=== PATIENT | male | born 1955 | race African-American/Black ===

== ENCOUNTER 2016-07-27 14:24 | Inpatient (IN) | payer MEDICARE, MEDICAID ==
[~2016-07-27] VITALS: Ht 175.3 cm; Wt 59.0 kg
[~2016-07-27 14:24] MED LIST: ASPIRIN EC81 MG PO; DILAUDID4 MG PO; EPZICOM1 TAB PO; GLUCERNA GT; LANTUS5 UNITS SUBQ; LEVAQUIN500 MG ORAL; OXANDRIN10 MG PO; PYRIDOXINE HCL50 MG PO; SUSTIVA600 MG PO; VITAMIN C500 M1 PO; ZESTRIL10 MG PO
[2016-07-27] MEDS ORDERED: Ipratropium 0.02% Inh Soln 2.5ml UD HHN ONE (14:30)
[2016-07-27] MEDS ORDERED: Albuterol ud Inhalation HHN ONE (14:30)
[2016-07-27] MEDS ORDERED: Azithromycin 500 MG in NS 275 ML IV ONE (14:30)
--- NOTE | 2016-07-27 14:34 | Emergency Room Report ---
History of Present Illness General Source: Patient, EMS Present Illness HPI Patient is a 60-year-old male brought in by ambulance after increased difficulty breathing. Patient had prior history of HIV and had began having increased cough and difficulty breathing. patient had reported a cell count greater than 500 as well as viral load undetectable. The patient had reported fever last night. He reportedly had been sick for 3 weeks. The patient is a smoker and denied smoking cigarettes for the past 3 weeks. Had been given a breathing treatment at the clinic. The patient is followed by Dr. Rl Jacobs. Allergies: Coded Allergies: AMOXICILLIN (Verified Allergy, Mild, 10/11/09) PENICILLINS (Verified Allergy, Mild, 10/11/09) Patient History Past Medical History: see triage record, asthma, COPD, HIV Reviewed Nursing Documentation: PMH: Agreed, PSxH: Agreed Nursing Documentation-PMH Hx Cardiac Problems: Yes - HIV Hx Hypertension: Yes Hx Asthma: Yes Hx COPD: Yes Hx Diabetes: Yes Hx Cancer: Yes Hx Gastrointestinal Problems: No Hx Neurological Problems: No Hx Paralysis: No Hx Peripheral Neuropathy: Yes - LEGS Hx Dizziness: Yes - INFREQUENT Hx Headaches: Yes - ONLY WHEN ILL OR WHEN DIABETES UNCONTROLLED Hx Weakness: Yes - MAJORITY OF THE TIME Hx Fatigue: Yes - MAJORITY OF THE TIME Review of Systems All Other Systems: negative except mentioned in HPI Physical Exam Sp02 EP Interpretation: reviewed, normal General Appearance: normal inspection, well appearing, no apparent distress, alert, GCS 15 Head: atraumatic ENT: normal ENT inspection, hearing grossly normal, normal voice Neck: normal inspection, full range of motion, supple, no bony tend Respiratory: normal inspection, lungs clear, no retraction, wheezing Cardiovascular #1: regular rate, rhythm, no edema Gastrointestinal: normal inspection, normal bowel sounds, non tender, soft, no guarding, no hernia Genitourinary: no CVA tenderness Musculoskeletal: normal inspection, back normal, normal range of motion Neurologic: normal inspection, alert, oriented x3, responsive, airport electrician III-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 Because of complexity of patient' s case laboratory testing and imaging studies were ordered. EKG interpreted by me showed sinus tachycardia with a rate of 107 there were no acute ST or T wave changes noted. A rhythm strip interpreted by me showed sinus tachycardia with a rate in the 100s without PVCs or ectopy.The patient was noted to have a laboratory tests were normal white blood count as as elevated creatinine. The patient started on IV fluids. He was given breathing treatments. Dr. Ramirez was contacted for inpatient management. Labs Test 07/27/16 15:15 White Blood Count 7.7 K/UL (4.8-10.8) Red Blood Count 4.20 M/UL (4.70-6.10) Hemoglobin 13.9 G/DL (14.2-18.0) Hematocrit 42.8 % (42.0-52.0) Mean Corpuscular Volume 102 FL (80-99) Mean Corpuscular Hemoglobin 33.1 PG (27.0-31.0) Mean Corpuscular Hemoglobin Concent 32.5 G/DL (32.0-36.0) Red Cell Distribution Width 14.5 % (11.6-14.8) Platelet Count 220 K/UL (150-450) Mean Platelet Volume 8.1 FL (6.5-10.1) Neutrophils (%) (Auto) 64.0 % (45.0-75.0) Lymphocytes (%) (Auto) 26.5 % (20.0-45.0) Monocytes (%) (Auto) 8.8 % (1.0-10.0) Eosinophils (%) (Auto) 0.2 % (0.0-3.0) Basophils (%) (Auto) 0.5 % (0.0-2.0) Sodium Level 136 mEQ/L (135-145) Potassium Level 5.1 mEQ/L (3.4-4.9) Chloride Level 97 mEQ/L (98-107) Carbon Dioxide Level 24 mEQ/L (20-30) Anion Gap 15 (5-15) Blood Urea Nitrogen 28 mg/dL (7-23) Creatinine 2.0 mg/dL (0.7-1.2) Estimat Glomerular Filtration Rate 41.7 mL/min (>60) Glucose Level 86 mg/dL (74-106) Lactic Acid Level 1.20 mmol/L (0.66-2.22) Calcium Level 8.7 mg/dL (8.6-10.2) Total Bilirubin 0.5 mg/dL (0.0-1.2) Aspartate Amino Transf (AST/SGOT) 54 U/L (5-40) Alanine Aminotransferase (ALT/SGPT) 34 U/L (3-41) Alkaline Phosphatase 48 U/L (40-129) Total Protein 7.9 g/dL (6.6-8.7) Albumin 3.7 g/dL (3.5-5.2) Globulin 4.2 g/dL Albumin/Globulin Ratio 0.8 (1.0-2.7) EKG Diagnostic Results Rate: tachycardiac Rhythm: NSR - 107 ST Segments: no acute changes Rhythm Strip Diag. Results EP Interpretation: yes Rhythm: NSR, no PVC's, no ectopy Chest X-Ray Diagnostic Results EP Interpretation: Yes Findings: no consolidation, no effusion, no pneumothorax, no acute cardiopulmonary disease Number of Views: 1 Status: unchanged Disposition: ADMITTED INPATIENT Condition: Serious Jim Durán Jul 27, 2016 14:34
[2016-07-27 15:24] VITALS: BP 120/82
[2016-07-27] MEDS ORDERED: Azithromycin Inj IV ONE (15:24)
[2016-07-27 16:06] LABS: BASOPHILS % (AUTO) 0.5 % (0.0-2.0); EOSINOPHILS % (AUTO) 0.2 % (0.0-3.0); LYMPHOCYTES % (AUTO) 26.5 % (20.0-45.0); MEAN CORPUSCULAR HEMOGLOBIN 33.1 PG (27.0-31.0); MEAN CORPUSCULAR HGB CONC 32.5 G/DL (32.0-36.0); MEAN CORPUSCULAR VOLUME 102 FL (80-99); MEAN PLATELET VOLUME 8.1 FL (6.5-10.1); MONOCYTES % (AUTO) 8.8 % (1.0-10.0); PLATELET COUNT 220 K/UL (150-450); RED CELL DISTRIBUTION WIDTH 14.5 % (11.6-14.8); WHITE BLOOD COUNT 7.7 K/UL (4.8-10.8)
[2016-07-27 16:23] LABS: ALBUMIN/GLOBULIN RATIO 0.8 (1.0-2.7); CALCIUM 8.7 mg/dL (8.6-10.2); GLOMERULAR FILTRATION RATE 41.7 mL/min (>60); POTASSIUM 5.1 mEQ/L (3.4-4.9); TOTAL PROTEIN 7.9 g/dL (6.6-8.7)
[2016-07-27] MEDS ORDERED: OXANDROLONE10 MG PO (16:24)
[2016-07-27] MEDS ORDERED: SYMBICORT 16010.2 G1 IH (16:24)
[2016-07-27] MEDS ORDERED: CLOTRIMAZOLE-BE15 GM TP (16:26)
[2016-07-27] MEDS ORDERED: ADVAIR HFA 45-212 GM INH (16:27)
[2016-07-27 16:28] LABS: TROPONIN I < 0.30 ng/mL (<=0.30)
[2016-07-27] MEDS ORDERED: LYRICA50 MG ORAL (16:28)
[2016-07-27] MEDS ORDERED: ISONIAZID300 MG PO (16:28)
[2016-07-27] MEDS ORDERED: ASPIR 8181 MG ORAL (16:28)
[2016-07-27] MEDS ORDERED: Morphine Sulfate 4mg/ml Inj IVP ONE (17:15)
[2016-07-27 17:49] VITALS: BP 116/79
--- NOTE | 2016-07-27 18:26 | Infectious Diseases Prog Note ---
Assessment/Plan Assessment/Plan Full consult to follow: A) 1) possible cap pna, fevers, sob, congestion 2) uri/bronchitis/copd 3) hiv, cd4 > 500 4) ? viral syndrome, influenza screen negative 5) zara, elevated cr, ? cri, htn, dm, neuropathy, copd, asthma, weakness, fatigue, ca - ? type 6) sh-past smoker, fh-nc, mar noted, notes and records reviewed 7) allergies - pcn, amoxicillin 8) d/w RN P) 1) levofloxacin, zyvox, aztreonam 2) check sc, labs and chest x-ray, check legionella, check mycoplasma 3) pulmonary treatment 4) orders entered and noted 5) continue treatment per primary and consultants 6) thank you Subjective Allergies: Coded Allergies: AMOXICILLIN (Verified Allergy, Mild, 10/11/09) PENICILLINS (Verified Allergy, Mild, 10/11/09) Objective Vital Signs Last 24 Hour Vital Signs Date Time Temp Pulse Resp B/P Pulse Ox O2 Delivery O2 Flow Rate FiO2 07/27/16 17:56 99.5 07/27/16 17:52 99.5 07/27/16 17:49 99.5 117 18 116/79 97 Room Air 07/27/16 15:25 121 20 Room Air 07/27/16 15:24 100.4 20 120/82 100 Room Air 07/27/16 14:50 121 20 100 Room Air 07/27/16 14:40 110 20 Room Air 07/27/16 14:31 100.4 114 21 120/82 96 Room Air Height (Feet): 5 Height (Inches): 7.00 Weight (Pounds): 133 Microbiology Date/Time Source Procedure Growth Status 07/27/16 15:22 Nasal Nares Influenza Types A,B Antigen (ALON) - Final Complete Laboratory Tests Test 07/27/16 15:15 White Blood Count 7.7 K/UL (4.8-10.8) Red Blood Count 4.20 M/UL (4.70-6.10) L Hemoglobin 13.9 G/DL (14.2-18.0) L Hematocrit 42.8 % (42.0-52.0) Mean Corpuscular Volume 102 FL (80-99) H Mean Corpuscular Hemoglobin 33.1 PG (27.0-31.0) H Mean Corpuscular Hemoglobin Concent 32.5 G/DL (32.0-36.0) Red Cell Distribution Width 14.5 % (11.6-14.8) Platelet Count 220 K/UL (150-450) Mean Platelet Volume 8.1 FL (6.5-10.1) Neutrophils (%) (Auto) 64.0 % (45.0-75.0) Lymphocytes (%) (Auto) 26.5 % (20.0-45.0) Monocytes (%) (Auto) 8.8 % (1.0-10.0) Eosinophils (%) (Auto) 0.2 % (0.0-3.0) Basophils (%) (Auto) 0.5 % (0.0-2.0) Sodium Level 136 mEQ/L (135-145) Potassium Level 5.1 mEQ/L (3.4-4.9) H Chloride Level 97 mEQ/L (98-107) L Carbon Dioxide Level 24 mEQ/L (20-30) Anion Gap 15 (5-15) Blood Urea Nitrogen 28 mg/dL (7-23) H Creatinine 2.0 mg/dL (0.7-1.2) H Estimat Glomerular Filtration Rate 41.7 mL/min (>60) Glucose Level 86 mg/dL (74-106) Lactic Acid Level 1.20 mmol/L (0.66-2.22) Calcium Level 8.7 mg/dL (8.6-10.2) Total Bilirubin 0.5 mg/dL (0.0-1.2) Aspartate Amino Transf (AST/SGOT) 54 U/L (5-40) H Alanine Aminotransferase (ALT/SGPT) 34 U/L (3-41) Alkaline Phosphatase 48 U/L (40-129) Troponin I < 0.30 ng/mL (<=0.30) Pro-B-Type Natriuretic Peptide 15 pg/mL (0-125) Total Protein 7.9 g/dL (6.6-8.7) Albumin 3.7 g/dL (3.5-5.2) Globulin 4.2 g/dL Albumin/Globulin Ratio 0.8 (1.0-2.7) L Current Medications Medications (Trade) Dose Ordered Sig/Jeremias Route PRN Reason Start Time Stop Time Status Last Admin Dose Admin Sodium Chloride (NS) 500 ml @ 999 mls/hr ONCE ONCE IVPB 07/27/16 18:00 07/27/16 18:30 07/27/16 18:02 ANDRZEJ SMITH Jul 27, 2016 18:26
[2016-07-27 18:35] VITALS: BP 119/79
--- NOTE | 2016-07-27 19:07 | General Progress Note ---
Progress Note Progress Note pt seen and examined nurse in the bed side full note will be dictated LUPE ROSS Jul 27, 2016 19:07
[2016-07-27] MEDS ORDERED: Ipratropium 0.02% Inh Soln 2.5ml UD HHN PRN (19:45)
[2016-07-27] MEDS ORDERED: Promethazine/Codeine 5ml UD ORAL PRN (19:45)
[2016-07-27] MEDS ORDERED: Zolpidem 5mg tab ORAL PRN (19:45)
[2016-07-27 20:41] LABS: APPEARANCE,URINE CLEAR; KETONES,URINE NEGATIVE (NEGATIVE); LEUKOCYTE ESTERASE ,URINE 1+ (NEGATIVE); NITRITE,URINE NEGATIVE (NEGATIVE); PH,URINE 6 (4.5-8.0); PROTEIN,URINE 2+ (NEGATIVE); UROBILINOGEN,URINE 8 MG/DL (0.0-1.0)
[2016-07-27] MEDS: Efavirenz 200mg cap ORAL SCH (21:00)
[2016-07-27 21:01] LABS: AMORPHOUS SEDIMENT,UR FEW /LPF; BACTERIA,URINE FEW /HPF
[2016-07-27] MEDS: NovoLOG Insulin Flexpen SUBQ SCH (21:19)
[2016-07-27] MEDS: Levemir Flexpen SUBQ SCH (21:19)
[2016-07-27] MEDS: Aztreonam Inj 1 GM in D5W 55 ML IVPB SCH (21:26)
[2016-07-27] MEDS: Albuterol ud Inhalation HHN SCH (23:07)
[2016-07-27] MEDS ORDERED: D5W IV SCH (23:45)
[2016-07-27] MEDS ORDERED: AZITHROMYCIN IV SCH (23:45)
[2016-07-28] VITALS: BP 122/78
[2016-07-28 04:00] VITALS: BP 118/82
--- NOTE | 2016-07-28 04:47 | Consultation ---
DATE OF CONSULTATION: 07/21/2016 REASON FOR CONSULTATION: Possible pneumonia and respiratory infection. CHIEF COMPLAINT: The patient's chief complaint coming in with COPD exacerbation. HISTORY OF PRESENT ILLNESS: This is a very pleasant 60-year-old male with history of HIV. T-cell count of over 500. Over the last several weeks to month, he states he has had cough, congestion, shortness of breath and green sputum production. The patient went to his primary doctor's office Dr. Deo Jacobs who has discussed the case with. The patient was diagnosed with possible pneumonia. The patient presents to [facility] with shortness of breath, cough, and congestion. Infectious Disease consultation was requested for antibiotic management. The patient is under the care of Dr. Ramirez. The patient was placed on antibiotics and cultured. The patient was seen by emergency room physician by RN. MAR was noted. Orders were noted. Notes and records were reviewed. REVIEW OF SYSTEMS: Constitutional: The patient has fever and chills. He has generalized weakness and fatigue. Head And Neck: No thrush or dysphagia. Pulmonary: He has congestion, shortness of breath, and green sputum production. Cardiac: No chest pain or palpitations. Gastrointestinal: No nausea, vomiting, or diarrhea. Genitourinary: No dysuria or frequency. Skin: No rash or itching. Extremities: No extremity pain Neurologic: No seizures. PAST MEDICAL HISTORY: Includes the history of following: The patient has a past medical history of HIV, T-cell count of above 500. He is on antiretroviral therapy. The patient also has elevated creatinine, kidney disease, questionable chronic kidney injury. The patient has anemia, diabetes, hypertension, neuropathy, COPD, asthma, weakness, fatigue, and question of malignancy. He has elevated potassium and very mild anemia, neuropathy, hypertension, and diabetes. Please see past medical history in medical order. ALLERGIES: Include amoxicillin and penicillin, he gets hives. FAMILY HISTORY: Noncontributory. Negative for exposure to tuberculosis or cancer. SOCIAL HISTORY: Past smoker. No alcohol or drug abuse. MEDICATIONS: Upon reviewing the MAR, in the ER he was given azithromycin and albuterol treatments. He was given Atrovent, Proventil, Advil, Tylenol, and morphine sulfate. Outside medications prior to admission include ascorbic acid, aspirin, Symbicort, clotrimazole, Sustiva, Epzicom, Advair, Dilaudid, . Looks like he was on Levaquin and Zestril. He was on oxandrolone. He was on pregabalin. Please see medications and past medical history in medical order. PHYSICAL EXAMINATION: GENERAL: Alert and responsive, no acute distress. He is oriented x3. He looks he has mild congestion. VITAL SIGNS: The patient's temperature is 100.4, pulse rate 117, respiratory rate 18, saturation 97%, and blood pressure 116/79. HEAD AND NECK: Oral exam, no thrush. Eye exam, no icterus. Neck is supple. No JVD. No sinus tenderness. Normocephalic. No facial droop. No neck stiffness. LUNGS: Bilateral rhonchi and rales. HEART: Regular. No gallop or murmur. No friction rub. Tachycardic. ABDOMEN: Soft. Positive bowel sounds. SKIN: No rash or dermatitis. MUSCULOSKELETAL: No effusions or contractures. EXTREMITIES: Legs are without cellulitis. PERIPHERAL VASCULAR: No cyanosis or gangrene. RECTAL: Deferred. GENITOURINARY: No Darby. LINES: Line sites is without phlebitis. NEUROLOGIC: Generalized weakness and responsive. LABORATORY DATA: White count 7.7 and hemoglobin 13.9. The patient's creatinine is 2.0 and potassium 5.1. Chest x-ray and cultures are pending. ASSESSMENT AND PLAN: 1. The patient has possibly community-acquired pneumonia versus pneumonia. He could have a viral pneumonia or viral syndrome. His influenza screen is negative. The patient certainly could have MRSA gram-negative which is partly community-acquired pneumonia. The patient will be started on Zyvox and aztreonam. I was considering Levaquin however because of he was placed on azithromycin in addition to aztreonam and Zyvox. We will check sputum culture, check Legionella, Mycoplasma, and sputum cultures. Follow up labs and chest x-ray. Unlikely to be PCP or cryptococcus since his T-cell count is over 500. At this time, we will continue antibiotics aztreonam, Zyvox, and azithromycin. Pending workup and cultures and serology and . The patient may need steroids. 2. Upper respiratory infection, bronchitis, and chronic obstructive pulmonary disease. Continue current pulmonary treatment. 3. HIV. T-cell count over 500. Continue antiretroviral therapy. 4. Possible viral syndrome. 5. Acute kidney injury; however, creatinine is 6. 6. Possible anemia. 7. Diabetes. 8. Hypertension. 9. Neuropathy. 10. Chronic obstructive pulmonary disease. 11. Asthma. 12. Weakness. 13. Fatigue. 14. history of cancer. 15. Past smoking. 16. Allergic to amoxicillin and penicillin, which he gets hives. 17. Discussed with RN. 18. Notes and records were reviewed. 19. 20. MAR was noted. 21. Atiya Lind M.D. DR: FAISAL JOB#: [id number] CC:
[2016-07-28] MEDS: Albuterol ud Inhalation HHN SCH ×6 (04:56→23:13)
[2016-07-28] MEDS: Aztreonam Inj 1 GM in D5W 55 ML IVPB SCH ×3 (05:57→22:02)
[2016-07-28] MEDS: NovoLOG Insulin Flexpen SUBQ SCH ×4 (06:01→21:00)
[2016-07-28 07:10] LABS: BASOPHILS % (AUTO) 0.4 % (0.0-2.0); EOSINOPHILS % (AUTO) 0.7 % (0.0-3.0); MEAN CORPUSCULAR HEMOGLOBIN 33.8 PG (27.0-31.0); MEAN CORPUSCULAR HGB CONC 33.2 G/DL (32.0-36.0); MEAN CORPUSCULAR VOLUME 102 FL (80-99); MEAN PLATELET VOLUME 8.4 FL (6.5-10.1); MONOCYTES % (AUTO) 9.2 % (1.0-10.0); NEUTROPHILS % (AUTO) 55.8 % (45.0-75.0); PLATELET COUNT 176 K/UL (150-450); RED CELL DISTRIBUTION WIDTH 14.6 % (11.6-14.8); WHITE BLOOD COUNT 6.7 K/UL (4.8-10.8)
[2016-07-28 07:38] LABS: CALCIUM 8.1 mg/dL (8.6-10.2); CREATININE 1.5 mg/dL (0.7-1.2); GLOMERULAR FILTRATION RATE 58.1 mL/min (>60)
[2016-07-28 08:00] VITALS: BP 113/75
[2016-07-28] MEDS: Aspirin EC 81mg tab ORAL SCH (08:51)
[2016-07-28] MEDS: Ascorbic Acid 500mg tab ORAL SCH ×2 (08:51→17:52)
[2016-07-28] MEDS: Lisinopril 20mg tab ORAL SCH (08:51)
[2016-07-28] MEDS: Lyrica 50mg cap ORAL SCH (08:52)
[2016-07-28] MEDS ORDERED: Lotrisone Cream 15gm TOPIC SCH (09:00)
[2016-07-28] MEDS: OXANDROLONE ORAL SCH (10:01)
--- NOTE | 2016-07-28 11:17 | Diagnostic Imaging Report ---
Indication: Dyspnea Comparison: 12 x 14 A single view chest radiograph was obtained. Findings: There is a severe kyphoscoliosis present. The lungs are clear. Heart is probably normal in size. Impression: No acute disease
[2016-07-28] MEDS: Epzicom tab ORAL SCH (13:57)
[2016-07-28 16:00] VITALS: BP 112/73
--- NOTE | 2016-07-28 16:44 | Infectious Diseases Prog Note ---
Assessment/Plan Assessment/Plan A) 1) possible cap pna, fevers, sob, congestion - fevers improved, w/u pending 2) uri/bronchitis/copd 3) hiv, cd4 > 500 4) ? viral syndrome, influenza screen negative 5) zara, elevated cr, ? cri, htn, dm, neuropathy, copd, asthma, weakness, fatigue, ca - ? type 6) sh-past smoker, fh-nc, mar noted, notes and records reviewed 7) allergies - pcn, amoxicillin 8) d/w RN P) 1) azithromycin, zyvox, aztreonam for now 2) check sc, labs and chest x-ray, check legionella, check mycoplasma 3) pulmonary treatment - breathing treatments 4) orders entered and noted 5) continue treatment per primary and consultants 6) d/w pt, answered questions Subjective Constitutional: Denies: fever HEENT: Reports: congestion Respiratory: Reports: shortness of breath Cardiovascular: Denies: chest pain Gastrointestinal/Abdominal: Denies: diarrhea, nausea, vomiting Genitourinary: Reports: other - no davenport, Denies: dysuria, frequency, hematuria Neurologic: Denies: headache Psychiatric: Denies: depression Skin: Denies: rash Musculoskeletal: Denies: pain Allergies: Coded Allergies: MUSHROOM (Verified Allergy, Severe, Hives, 07/27/16) AMOXICILLIN (Verified Allergy, Mild, 10/11/09) PENICILLINS (Verified Allergy, Mild, 10/11/09) Objective Vital Signs Last 24 Hour Vital Signs Date Time Temp Pulse Resp B/P Pulse Ox O2 Delivery O2 Flow Rate FiO2 07/28/16 16:00 98.1 99 20 112/73 98 Room Air 07/28/16 15:25 104 18 97 Room Air 2.0 07/28/16 15:11 102 18 95 Room Air 07/28/16 12:23 98.2 87 20 95 Room Air 07/28/16 10:59 95 14 100 Room Air 07/28/16 10:52 104 14 95 Room Air 07/28/16 10:39 97.3 07/28/16 08:51 113/75 07/28/16 08:00 97.3 98 19 113/75 96 Room Air 07/28/16 07:31 96 14 100 Room Air 07/28/16 07:20 96 14 100 Room Air 07/28/16 05:05 67 14 100 Room Air 07/28/16 04:57 96 18 97 Room Air 07/28/16 04:00 97.3 98 20 118/82 97 Nasal Cannula 2.0 07/28/16 00:00 98.2 92 20 122/78 96 Nasal Cannula 2.0 07/27/16 23:03 94 18 100 Room Air 07/27/16 22:48 90 18 95 Room Air 07/27/16 18:35 98.8 107 23 119/79 96 Room Air 07/27/16 18:11 117 18 116/79 97 Room Air 07/27/16 17:56 99.5 07/27/16 17:52 99.5 07/27/16 17:49 99.5 117 18 116/79 97 Room Air Height (Feet): 5 Height (Inches): 9.00 Weight (Pounds): 130 General Appearance: no acute distress HEENT: normocephalic, atraumatic, anicteric, mucous membranes moist, PERRL, EOMI, pharynx normal, supple, no JVD Respiratory/Chest: no respiratory distress, no accessory muscle use, crackles/ rales, rhonchi - bilaterally, other - clearer bilateral Cardiovascular: normal rate, regular rhythm, no gallop/murmur, no JVD Abdomen: normal bowel sounds, soft, non tender, no organomegaly, non distended Genitourinary: other - no davenport Extremities: no cyanosis Skin: no rash Neurologic/Psychiatric: open soaper tender II-XII grossly normal, alert, oriented x 3, responsive Lymphatic: no neck adenopathy Musculoskeletal: no effusion Objective chest x-ray - 07/27 - nad (reviewed) Microbiology Date/Time Source Procedure Growth Status 07/27/16 15:22 Nasal Nares Influenza Types A,B Antigen (ALON) - Final Complete influenza - negative culture - pending Laboratory Tests Test 07/27/16 19:40 07/27/16 19:55 07/28/16 06:05 Urine Color Brown Urine Appearance Clear Urine pH 6 (4.5-8.0) Urine Specific [place] 1.015 (1.005-1.035) Urine Protein 2+ (NEGATIVE) H Urine Glucose (UA) Negative (NEGATIVE) Urine Ketones Negative (NEGATIVE) Urine Occult Blood 2+ (NEGATIVE) H Urine Nitrite Negative (NEGATIVE) Urine Bilirubin Negative (NEGATIVE) Urine Urobilinogen 8 MG/DL (0.0-1.0) H Urine Leukocyte Esterase 1+ (NEGATIVE) H Urine RBC 5-10 /HPF (0 - 0) H Urine WBC 2-4 /HPF (0 - 0) Urine Squamous Epithelial Cells None /LPF (NONE/OCC) Urine Amorphous Sediment Few /LPF (NONE) H Urine Bacteria Few /HPF (NONE) Urine Opiates Screen Positive (NEGATIVE) H Urine Barbiturates Screen Negative (NEGATIVE) Phencyclidine (PCP) Screen Negative (NEGATIVE) Urine Amphetamines Screen Negative (NEGATIVE) Urine Benzodiazepines Screen Negative (NEGATIVE) Urine Cocaine Screen Positive (NEGATIVE) H Urine Marijuana (THC) Screen Negative (NEGATIVE) Urine Legionella Antigen Pending Mycoplasma pneumoniae IgG Antibody Pending Mycoplasma pneumoniae IgM Ab Titer Pending White Blood Count 6.7 K/UL (4.8-10.8) Red Blood Count 3.40 M/UL (4.70-6.10) L Hemoglobin 11.5 G/DL (14.2-18.0) L Hematocrit 34.5 % (42.0-52.0) L Mean Corpuscular Volume 102 FL (80-99) H Mean Corpuscular Hemoglobin 33.8 PG (27.0-31.0) H Mean Corpuscular Hemoglobin Concent 33.2 G/DL (32.0-36.0) Red Cell Distribution Width 14.6 % (11.6-14.8) Platelet Count 176 K/UL (150-450) Mean Platelet Volume 8.4 FL (6.5-10.1) Neutrophils (%) (Auto) 55.8 % (45.0-75.0) Lymphocytes (%) (Auto) 34.0 % (20.0-45.0) Monocytes (%) (Auto) 9.2 % (1.0-10.0) Eosinophils (%) (Auto) 0.7 % (0.0-3.0) Basophils (%) (Auto) 0.4 % (0.0-2.0) Sodium Level 140 mEQ/L (135-145) Potassium Level 4.0 mEQ/L (3.4-4.9) Chloride Level 102 mEQ/L (98-107) Carbon Dioxide Level 24 mEQ/L (20-30) Anion Gap 14 (5-15) Blood Urea Nitrogen 25 mg/dL (7-23) H Creatinine 1.5 mg/dL (0.7-1.2) H Estimat Glomerular Filtration Rate 58.1 mL/min (>60) Glucose Level 87 mg/dL (74-106) Hemoglobin A1c 6.3 % (< 6.0) H Calcium Level 8.1 mg/dL (8.6-10.2) L Current Medications Medications (Trade) Dose Ordered Sig/Jeremias Route PRN Reason Start Time Stop Time Status Last Admin Dose Admin Abacavir/ Lamivudine (Epzicom) 1 tab DAILY ORAL 07/28/16 13:00 08/27/16 12:59 07/28/16 13:57 Acetaminophen (Tylenol) 650 mg Q6H PRN ORAL Mild Pain/Temp > 100.5 07/27/16 19:45 08/26/16 19:44 Albuterol Sulfate (Proventil) 2.5 mg Q4HRT HHN 07/27/16 23:00 08/01/16 22:59 07/28/16 15:09 Ascorbic Acid (Vitamin C) 500 mg BID ORAL 07/28/16 09:00 08/27/16 08:59 07/28/16 08:51 Aspirin (Ecotrin) 81 mg DAILY ORAL 07/28/16 09:00 08/27/16 08:59 07/28/16 08:51 Azithromycin/ Dextrose (Zithromax/D5W) 110 ml @ 110 mls/hr Q24HRS IV 07/29/16 00:00 08/01/16 00:00 Aztreonam/Dextrose (Azactam/D5W) 55 ml @ 110 mls/hr Q8HR IVPB 07/27/16 22:00 08/03/16 21:59 07/28/16 13:34 Budesonide/ Formoterol Fumarate (Symbicort 160/ 4.5) 1 puff Q6H PRN INH WHEEZING 07/27/16 21:00 08/26/16 20:59 Dextrose (Dextrose 50%) STAT PRN IV Hypoglycemia 07/27/16 19:45 08/26/16 19:44 Efavirenz (Sustiva) 600 mg BEDTIME ORAL 07/27/16 21:00 08/26/16 20:59 Hydromorphone HCl (Dilaudid) 2 mg Q4H PRN IVP Severe Pain (Pain Scale 7-10) 07/27/16 19:45 08/03/16 19:44 07/28/16 10:09 Insulin Aspart (NovoLOG) BEFORE MEALS AND HS SUBQ 07/27/16 21:00 08/26/16 20:59 07/28/16 12:28 Insulin Detemir 24 units 24 units QHS SUBQ 07/27/16 21:00 08/26/16 20:59 07/27/16 21:19 Ipratropium [place] (Atrovent) 500 mcg Q4H PRN HHN Shortness of Breath 07/27/16 19:45 08/01/16 19:44 Linezolid 300 ml @ 300 mls/hr EVERY 12 HOURS IVPB 07/27/16 21:00 08/03/16 20:59 07/28/16 10:07 Lisinopril (Prinivil) 10 mg DAILY ORAL 07/28/16 09:00 08/27/16 08:59 07/28/16 08:51 Ondansetron HCl (Zofran) 4 mg Q4H PRN IVP Nausea & Vomiting 07/27/16 19:45 08/26/16 19:44 07/28/16 15:20 Oxandrolone (Oxandrin) 10 mg DAILY ORAL 07/28/16 09:00 08/27/16 08:59 07/28/16 10:01 Pregabalin (Lyrica) 50 mg DAILY ORAL 07/28/16 09:00 08/27/16 08:59 07/28/16 08:52 Promethazine HCl/ Codeine (Phenergan with Codeine) 5 ml Q4H PRN ORAL For Cough 07/27/16 19:45 08/26/16 19:44 07/28/16 15:45 Zolpidem Tartrate (Ambien) 5 mg HSPRN PRN ORAL Insomnia 07/27/16 19:45 08/26/16 19:44 ANDRZEJ SMITH Jul 28, 2016 16:44
--- NOTE | 2016-07-28 18:44 | Nephrology Progress Note ---
Assessment/Plan Problem List: (1) Acute kidney injury Assessment: due to unstable hemodynamic vs ckd due diabetic nephropathy vs HIVAN vs nephrosclerosis need to check us of kidney urine study (2) COPD exacerbation Assessment: continue breathing treatment iv antibiotic (3) Diabetes mellitus complicating , childbirth, or the puerperium Assessment: well controlled (4) Febrile illness, acute Assessment: continue iv antibiotic fallow up with culture fallow up with ID rec Subjective Constitutional: Reports: malaise, weakness HEENT: Reports: no symptoms Genitourinary: Reports: no symptoms Neurologic/Psychiatric: Reports: no symptoms Subjective alert and awake still c/o cough and sputum Objective Objective Last 24 Hour Vital Signs Date Time Temp Pulse Resp B/P Pulse Ox O2 Delivery O2 Flow Rate FiO2 07/28/16 17:13 98.1 07/28/16 16:00 98.1 99 20 112/73 98 Room Air 07/28/16 15:25 104 18 97 Room Air 2.0 07/28/16 15:11 102 18 95 Room Air 07/28/16 12:23 98.2 87 20 95 Room Air 07/28/16 10:59 95 14 100 Room Air 07/28/16 10:52 104 14 95 Room Air 07/28/16 08:51 113/75 07/28/16 08:00 97.3 98 19 113/75 96 Room Air 07/28/16 07:31 96 14 100 Room Air 07/28/16 07:20 96 14 100 Room Air 07/28/16 05:05 67 14 100 Room Air 07/28/16 04:57 96 18 97 Room Air 07/28/16 04:00 97.3 98 20 118/82 97 Nasal Cannula 2.0 07/28/16 00:00 98.2 92 20 122/78 96 Nasal Cannula 2.0 07/27/16 23:03 94 18 100 Room Air 07/27/16 22:48 90 18 95 Room Air Intake and Output 07/27/16 07/28/16 19:00 07:00 Intake Total 1375 ml 770 ml Output Total 300 ml Balance 1375 ml 470 ml Intake Oral 100 ml 250 ml IV Total 1275 ml 520 ml Output Urine Total 300 ml # Voids 1 Laboratory Tests 07/27/16 19:40: Urine Color Brown, Urine Appearance Clear, Urine pH 6, Urine Specific [place] 1.015, Urine Protein 2+H, Urine Glucose (UA) Negative, Urine Ketones Negative, Urine Occult Blood 2+H, Urine Nitrite Negative, Urine Bilirubin Negative, Urine Urobilinogen 8H, Urine Leukocyte Esterase 1+H, Urine RBC 5-10H, Urine WBC 2-4, Urine Squamous Epithelial Cells None, Urine Amorphous Sediment FewH, Urine Bacteria Few, Urine Opiates Screen PositiveH, Urine Barbiturates Screen Negative , Phencyclidine (PCP) Screen Negative, Urine Amphetamines Screen Negative, Urine Benzodiazepines Screen Negative, Urine Cocaine Screen PositiveH, Urine Marijuana (THC) Screen Negative 07/27/16 19:55: Urine Legionella Antigen [Pending], Mycoplasma pneumoniae IgG Antibody [Pending] , Mycoplasma pneumoniae IgM Ab Titer [Pending] 07/28/16 06:05: White Blood Count 6.7, Red Blood Count 3.40L, Hemoglobin 11.5L, Hematocrit 34.5L , Mean Corpuscular Volume 102H, Mean Corpuscular Hemoglobin 33.8H, Mean Corpuscular Hemoglobin Concent 33.2, Red Cell Distribution Width 14.6, Platelet Count 176, Mean Platelet Volume 8.4, Neutrophils (%) (Auto) 55.8, Lymphocytes (% ) (Auto) 34.0, Monocytes (%) (Auto) 9.2, Eosinophils (%) (Auto) 0.7, Basophils ( %) (Auto) 0.4, Sodium Level 140, Potassium Level 4.0, Chloride Level 102, Carbon Dioxide Level 24, Anion Gap 14, Blood Urea Nitrogen 25H, Creatinine 1.5H , Estimat Glomerular Filtration Rate 58.1, Glucose Level 87, Hemoglobin A1c 6.3H , Calcium Level 8.1L Height (Feet): 5 Height (Inches): 9.00 Weight (Pounds): 130 Objective HEAD AND NECK: Oral exam, no thrush. Eye exam, no icterus. Neck is supple. No JVD. No sinus tenderness. Normocephalic. No facial droop. No neck stiffness. LUNGS: Bilateral rhonchi and rales. HEART: Regular. No gallop or murmur. No friction rub. Tachycardic. ABDOMEN: Soft. Positive bowel sounds. SKIN: No rash or dermatitis. MUSCULOSKELETAL: No effusions or contractures. EXTREMITIES: Legs are without cellulitis. LUPE ROSS Jul 28, 2016 18:44
--- NOTE | 2016-07-28 19:05 | Cardiology Progress Note ---
Assessment/Plan Assessment/Plan The patient is seen and examined, full consult note will be dictated. Objective Last 24 Hour Vital Signs Date Time Temp Pulse Resp B/P Pulse Ox O2 Delivery O2 Flow Rate FiO2 07/28/16 17:13 98.1 07/28/16 16:00 98.1 99 20 112/73 98 Room Air 07/28/16 15:25 104 18 97 Room Air 2.0 07/28/16 15:11 102 18 95 Room Air 07/28/16 12:23 98.2 87 20 95 Room Air 07/28/16 10:59 95 14 100 Room Air 07/28/16 10:52 104 14 95 Room Air 07/28/16 08:51 113/75 07/28/16 08:00 97.3 98 19 113/75 96 Room Air 07/28/16 07:31 96 14 100 Room Air 07/28/16 07:20 96 14 100 Room Air 07/28/16 05:05 67 14 100 Room Air 07/28/16 04:57 96 18 97 Room Air 07/28/16 04:00 97.3 98 20 118/82 97 Nasal Cannula 2.0 07/28/16 00:00 98.2 92 20 122/78 96 Nasal Cannula 2.0 07/27/16 23:03 94 18 100 Room Air 07/27/16 22:48 90 18 95 Room Air Intake and Output 07/27/16 07/28/16 19:00 07:00 Intake Total 1375 ml 770 ml Output Total 300 ml Balance 1375 ml 470 ml Intake Oral 100 ml 250 ml IV Total 1275 ml 520 ml Output Urine Total 300 ml # Voids 1 Laboratory Tests Test 07/27/16 19:40 07/27/16 19:55 07/28/16 06:05 Urine Color Brown Urine Appearance Clear Urine pH 6 (4.5-8.0) Urine Specific [place] 1.015 (1.005-1.035) Urine Protein 2+ (NEGATIVE) H Urine Glucose (UA) Negative (NEGATIVE) Urine Ketones Negative (NEGATIVE) Urine Occult Blood 2+ (NEGATIVE) H Urine Nitrite Negative (NEGATIVE) Urine Bilirubin Negative (NEGATIVE) Urine Urobilinogen 8 MG/DL (0.0-1.0) H Urine Leukocyte Esterase 1+ (NEGATIVE) H Urine RBC 5-10 /HPF (0 - 0) H Urine WBC 2-4 /HPF (0 - 0) Urine Squamous Epithelial Cells None /LPF (NONE/OCC) Urine Amorphous Sediment Few /LPF (NONE) H Urine Bacteria Few /HPF (NONE) Urine Opiates Screen Positive (NEGATIVE) H Urine Barbiturates Screen Negative (NEGATIVE) Phencyclidine (PCP) Screen Negative (NEGATIVE) Urine Amphetamines Screen Negative (NEGATIVE) Urine Benzodiazepines Screen Negative (NEGATIVE) Urine Cocaine Screen Positive (NEGATIVE) H Urine Marijuana (THC) Screen Negative (NEGATIVE) Urine Legionella Antigen Pending Mycoplasma pneumoniae IgG Antibody Pending Mycoplasma pneumoniae IgM Ab Titer Pending White Blood Count 6.7 K/UL (4.8-10.8) Red Blood Count 3.40 M/UL (4.70-6.10) L Hemoglobin 11.5 G/DL (14.2-18.0) L Hematocrit 34.5 % (42.0-52.0) L Mean Corpuscular Volume 102 FL (80-99) H Mean Corpuscular Hemoglobin 33.8 PG (27.0-31.0) H Mean Corpuscular Hemoglobin Concent 33.2 G/DL (32.0-36.0) Red Cell Distribution Width 14.6 % (11.6-14.8) Platelet Count 176 K/UL (150-450) Mean Platelet Volume 8.4 FL (6.5-10.1) Neutrophils (%) (Auto) 55.8 % (45.0-75.0) Lymphocytes (%) (Auto) 34.0 % (20.0-45.0) Monocytes (%) (Auto) 9.2 % (1.0-10.0) Eosinophils (%) (Auto) 0.7 % (0.0-3.0) Basophils (%) (Auto) 0.4 % (0.0-2.0) Sodium Level 140 mEQ/L (135-145) Potassium Level 4.0 mEQ/L (3.4-4.9) Chloride Level 102 mEQ/L (98-107) Carbon Dioxide Level 24 mEQ/L (20-30) Anion Gap 14 (5-15) Blood Urea Nitrogen 25 mg/dL (7-23) H Creatinine 1.5 mg/dL (0.7-1.2) H Estimat Glomerular Filtration Rate 58.1 mL/min (>60) Glucose Level 87 mg/dL (74-106) Hemoglobin A1c 6.3 % (< 6.0) H Calcium Level 8.1 mg/dL (8.6-10.2) L Microbiology Date/Time Source Procedure Growth Status 07/27/16 15:22 Nasal Nares Influenza Types A,B Antigen (ALON) - Final Complete WILVER JASSO Jul 28, 2016 19:05
[2016-07-28 20:00] VITALS: BP 116/74
[2016-07-28] MEDS: Efavirenz 200mg cap ORAL SCH (20:49)
[2016-07-28] MEDS: Levemir Flexpen SUBQ SCH (21:02)
[2016-07-29] VITALS: BP 133/81
[2016-07-29] MEDS ORDERED: D5W IV SCH ×2
[2016-07-29] MEDS ORDERED: AZITHROMYCIN IV SCH ×2
--- NOTE | 2016-07-29 02:37 | Consultation ---
DATE OF CONSULTATION: 07/28/2016 CARDIOLOGY CONSULTATION CONSULTING PHYSICIAN: Koffi Harper M.D. REFERRING PHYSICIAN: Abbie Ramirez M.D. ADDITIONAL REFERRING PHYSICIAN: Ian Jacobs M.D. REASON FOR CONSULTATION: Management of tachycardia. HISTORY OF PRESENT ILLNESS: This is a very unfortunate 60-year-old gentleman, who was brought to [facility] by ambulance with increased difficulty breathing. The patient had associated cough and fever. According to the patient, he has been very sick for the past three weeks. He was advised to come to the hospital at the request of Dr. Ian Jacobs, his primary M.D. PAST MEDICAL HISTORY: History of human immunodeficiency virus disease, history of hypertension, history of asthma/COPD, history of diabetes mellitus, history of peripheral neuropathy, history of dizziness, history of headaches, history of weakness and fatigue as well as history of cancer. PAST SURGICAL HISTORY: None. ALLERGIES: Amoxicillin and penicillin derivatives. MEDICATIONS: List of medications at home includes ascorbic acid 500 mg twice daily, aspirin 81 mg p.o. daily, Symbicort 160/4.5 mcg inhaler twice daily, clotrimazole/betamethasone cream to be applied twice daily, Epzicom one tablet p.o. daily, Advair 45/20 mcg inhaler twice daily, Dilaudid 4 mg p.o. q.4 h., Lantus insulin, levofloxacin 500 mg p.o. daily, Zestril 10 mg p.o. daily, oxandrolone 10 mg p.o. daily, and Lyrica 50 mg p.o. daily. FAMILY HISTORY: No premature coronary artery disease in first-degree relatives. SOCIAL HISTORY: Past smoker and denies any alcohol or illicit drug use. REVIEW OF SYSTEMS: HEENT: Denies any headache, diplopia, or blurred vision. Constitutional: He had fever and chills and also generalized weakness and fatigue. Cardiovascular: Denies any chest pain, but he had shortness of breath. Denies any PND, orthopnea, or leg swelling. Pulmonary: Some congestion and shortness of breath and productive cough of greenish sputum. Gastrointestinal: Did not have any diarrhea, constipation, abdominal pain, or GI bleed. Genitourinary: Denies any hematuria, dysuria, or incontinence. Neurologic: Denies any motor dysfunction, sensory deficits, or altered speech. PHYSICAL EXAMINATION: VITAL SIGNS: Blood pressure on arrival to the hospital was 120/82, heart rate 113, temperature of 100.4 degrees Fahrenheit, respiration 21, and O2 saturation 96% on room air. GENERAL: The patient is a very ill-looking, 60-year-old gentleman, in no apparent respiratory distress. HEENT: Atraumatic and normocephalic. Anicteric. Pupils are equal, round, and reactive to light and accommodation. Extraocular muscles are intact. NECK: JVP is less than 5 cm. No carotid bruit. Carotid upstroke is 2+ bilaterally. CARDIOVASCULAR: Normal S1 and S2. Regular rate and rhythm. Tachycardic. A 2/6 mid systolic murmur at left sternal border. LUNGS: Clear to auscultation bilaterally. ABDOMEN: Soft, nontender, and nondistended. No hepatosplenomegaly. Positive bowel sounds. EXTREMITIES: No evidence of edema, clubbing, or cyanosis. LABORATORY FINDINGS: WBC 7.7, hemoglobin 13.9, hematocrit 42.8, and platelet count is 220,000. Sodium is 136, potassium 5.1, chloride 97, bicarbonate 24, BUN 28, creatinine 2.0, and glucose is 86. Calcium is 8.7. Troponin I is less than 0.3. ProBNP was 15. Urine tox showed opiates and cocaine. A 12-lead electrocardiogram, sinus tachycardia rate of [address] and T-wave abnormalities. Chest x-ray showed no acute cardiopulmonary disease. ASSESSMENT AND PLAN: The patient is a very unfortunate, 60-year-old gentleman, seen in Cardiology consultation at request of Dr. Ramirez. 1. Sinus tachycardia in this patient is most likely due to possible community-acquired pneumonia. This is viral pneumonia. ID is to follow the patient for appropriate antibiotic therapy in view of history of human immunodeficiency virus disease and possible immunocompromise status. 2. The treatment of sinus tachycardia is the treatment of underlying disorder. We will continue following the patient hemodynamically while in the hospital. 3. History of shortness of breath most likely due to pulmonary origin. We will continue oxygen and pulmonary toilet and intravenous antibiotic therapy. 4. History of hypertension. We will continue on lisinopril. 5. History of diabetes mellitus. The patient is on aspirin therapy. He would benefit from statins as well. At the time of discharge, we will recommend placing him on atorvastatin 20 mg by mouth at bedtime. Lipid panel will be done for coronary artery disease risk stratification. 6. History of chronic obstructive pulmonary disease. 7. History of peripheral neuropathy. I would like to thank, Dr. Ramirez, for allowing me to participate in the care of this patient. Koffi Harper M.D. DR: MARYBETH JOB#: [id number] CC:
--- NOTE | 2016-07-29 02:57 | History and Physical Report ---
DATE OF ADMISSION: 07/27/2016 NEPHROLOGY CONSULTATION PRIMARY PHYSICIAN: Rl Jacobs M.D. REASON FOR ADMISSION: Possible pneumonia and respiratory distress and acute renal failure. HISTORY OF PRESENT ILLNESS: The patient is a pleasant 60-year-old, male with past medical history significant for history of HIV, history of chronic kidney disease, history of hypertension, diabetes, history of COPD, history of diabetes, hypertension, and dyslipidemia, who presented to his primary physician Dr. Jacobs for evaluation of shortness of breath and productive cough with greenish sputum for last two months. Apparently, the patient was started on outpatient Levaquin for p.o. antibiotic. He failed the treatment. He was consequently sent to emergency room for admission. I was called for admission. PAST MEDICAL HISTORY: Including, 1. Human immunodeficiency virus. 2. Diabetes. 3. Hypertension. 4. Dyslipidemia. 5. History of chronic kidney disease. 6. Diabetic neuropathy. 7. Anemia. 8. Chronic obstructive pulmonary disease. PAST SURGICAL HISTORY: None. ALLERGIES: He is allergic to penicillin and amoxicillin. MEDICATIONS: Including, 1. Ascorbic acid. 2. Aspirin. 3. Symbicort. 4. Clotrimazole. 5. Sustiva. 6. Epzicom. 7. Advair. 8. Dilaudid. 9. Also, the patient tried Levaquin as an outpatient. FAMILY HISTORY: Negative for any history of chronic kidney disease. SOCIAL HISTORY: He has a remote history of smoking. He denies any history of alcohol or drug use. REVIEW OF SYSTEMS: General: He complained of generalized weakness. He has lost weight, but he is not aware of the amount of weight loss. Denies any night sweats. Head And Neck: Denies any dysphagia, odynophagia, blurry vision, headache, or neck stiffness. Pulmonary: He complained of shortness of breath, cough, or greenish sputum. Denies any hemoptysis. Cardiovascular: Denies any chest pain or palpitations. Gastrointestinal: Denies any nausea, vomiting, and complained of decreased appetite. Genitourinary: Denies any dysuria, frequency, or hematuria. Musculoskeletal: He complained of generalized weakness. Otherwise negative. PHYSICAL EXAMINATION: VITAL SIGNS: The patient had a temperature of 100.4, pulse of 100, respiratory rate of 18, and blood pressure 116/79. HEAD AND NECK: No JVP. No LAD. No thyromegaly. Temporal wasting. Extraocular movement are intact. Pupils are reactive to light and accommodation. LUNGS: He has bilateral rhonchi and wheezing. CARDIAC: Regular rate and rhythm. S1 and S2. No murmur. No rub. ABDOMEN: Soft, nontender, and nondistended. No organomegaly. EXTREMITIES: No edema. No clubbing. No cyanosis. LABORATORY AND DIAGNOSTIC DATA: Chemistry on admission revealed sodium of 136, potassium 5.1, 97 chloride, BUN of 28, creatinine of 2, glucose of 141, and calcium of 8.4. AST of 54, ALT of 34, and alkaline phosphatase of 48. Total protein of 7.9 and albumin of 3.7. CBC revealed WBC count of 7.7, hemoglobin of 13.9, hematocrit of 42, and platelet count of 220,000. UA revealed specific gravity of 1015, pH of 6, blood 2+, leukocyte esterase 1+, RBC of 5 to 10, WBC of 2 to 4, and bacteria a few. ASSESSMENT AND PLAN: 1. Acute renal failure. 2. Chronic kidney disease. 3. Diabetic nephropathy versus hypertensive nephrosclerosis versus HIVAN or human immunodeficiency virus related nephropathy. 4. Possible bronchitis versus pneumonia. The patient had a chest x-ray in the ER, which did not show any evidence of pneumonia. 5. Possible chronic obstructive pulmonary disease exacerbation. 6. History of human immunodeficiency virus. 7. History of diabetes. 8. Proteinuria and hematuria. PLAN: Plan for the patient to restart the patient on home medication. Infectious disease consultation. Obtain an EKG for tachycardia. I would start the patient on broad-spectrum antibiotics for possible upper respiratory tract infection. Check the random urine, protein, creatinine ratio to calculate the proteinuria. Check the urine sodium and creatinine to calculate fractional excretion of sodium. I would check the A1c. Recommended A1c for this patient is 6 to 7. I would possibly do a urine culture. I would discuss with the patient for possible drug use. The patient has a positive cocaine in her urine tox. I would monitoring electrolytes closely. Abbie Ramirez M.D. DR: MAE JOB#: [id number] CC:
[2016-07-29] MEDS: Albuterol ud Inhalation HHN SCH ×6 (03:28→23:49)
[2016-07-29 04:00] VITALS: BP 126/86
[2016-07-29] MEDS: Aztreonam Inj 1 GM in D5W 55 ML IVPB SCH ×2 (06:00→13:51)
[2016-07-29] MEDS: NovoLOG Insulin Flexpen SUBQ SCH ×4 (06:30→20:27)
[2016-07-29 06:43] LABS: CREATININE, RANDOM URINE 193.6 mg/dL
[2016-07-29 06:57] LABS: BASOPHILS % (AUTO) 0.4 % (0.0-2.0); EOSINOPHILS % (AUTO) 0.4 % (0.0-3.0); LYMPHOCYTES % (AUTO) 28.2 % (20.0-45.0); MEAN CORPUSCULAR HEMOGLOBIN 33.6 PG (27.0-31.0); MEAN CORPUSCULAR HGB CONC 32.2 G/DL (32.0-36.0); MEAN CORPUSCULAR VOLUME 104 FL (80-99); MEAN PLATELET VOLUME 7.6 FL (6.5-10.1); MONOCYTES % (AUTO) 8.7 % (1.0-10.0); NEUTROPHILS % (AUTO) 62.3 % (45.0-75.0); PLATELET COUNT 199 K/UL (150-450); RED BLOOD COUNT 3.41 M/UL (4.70-6.10); RED CELL DISTRIBUTION WIDTH 14.3 % (11.6-14.8)
[2016-07-29 08:00] VITALS: BP 127/76
[2016-07-29] MEDS: OXANDROLONE ORAL SCH (08:03)
[2016-07-29] MEDS: Aspirin EC 81mg tab ORAL SCH (08:03)
[2016-07-29] MEDS: Epzicom tab ORAL SCH (08:04)
[2016-07-29] MEDS: Lisinopril 20mg tab ORAL SCH (08:04)
[2016-07-29] MEDS: Lyrica 50mg cap ORAL SCH (08:05)
[2016-07-29] MEDS: Ascorbic Acid 500mg tab ORAL SCH ×2 (08:05→18:03)
[2016-07-29 08:10] LABS: CALCIUM 8.7 mg/dL (8.6-10.2); CREATININE 1.6 mg/dL (0.7-1.2); GLOMERULAR FILTRATION RATE 53.9 mL/min (>60); POTASSIUM 3.9 mEQ/L (3.4-4.9)
--- NOTE | 2016-07-29 10:06 | Nephrology Progress Note ---
Assessment/Plan Problem List: (1) Acute kidney injury Assessment: due to unstable hemodynamic vs ckd due diabetic nephropathy vs HIVAN vs nephrosclerosis need to check us of kidney urine study us of kidney (2) COPD exacerbation Assessment: continue breathing treatment iv antibiotic (3) Diabetes mellitus complicating , childbirth, or the puerperium Assessment: well controlled (4) Febrile illness, acute Assessment: continue iv antibiotic fallow up with culture fallow up with ID rec (5) Tachycardia Assessment: echo is done cardiology evaluation Subjective Constitutional: Reports: malaise, weakness HEENT: Reports: no symptoms Genitourinary: Reports: no symptoms Neurologic/Psychiatric: Reports: no symptoms Subjective alert and awake still c/o cough and sputum no it getting better Objective Objective Last 24 Hour Vital Signs Date Time Temp Pulse Resp B/P Pulse Ox O2 Delivery O2 Flow Rate FiO2 07/29/16 08:33 98.8 07/29/16 08:04 126/86 07/29/16 08:00 98.3 73 18 127/76 91 Room Air 07/29/16 07:11 108 18 100 Room Air 07/29/16 07:06 120 18 96 Room Air 07/29/16 04:00 98.8 116 20 126/86 95 Room Air 07/29/16 03:33 99 18 98 Room Air 07/29/16 03:28 99 20 96 Room Air 07/29/16 00:00 100.2 121 22 133/81 94 Room Air 07/28/16 23:22 105 18 96 Room Air 07/28/16 23:12 104 20 95 Room Air 07/28/16 20:00 99.3 108 18 116/74 96 Room Air 07/28/16 19:45 102 16 98 Room Air 2.0 07/28/16 19:35 101 16 96 Room Air 07/28/16 16:00 98.1 99 20 112/73 98 Room Air 07/28/16 15:25 104 18 97 Room Air 2.0 07/28/16 15:11 102 18 95 Room Air 07/28/16 12:23 98.2 87 20 95 Room Air 07/28/16 10:59 95 14 100 Room Air 07/28/16 10:52 104 14 95 Room Air Intake and Output 07/28/16 07/29/16 19:00 07:00 Intake Total 230 ml 590 ml Output Total 300 ml 150 ml Balance -70 ml 440 ml Intake Oral 120 ml 480 ml IV Total 110 ml 110 ml Output Urine Total 300 ml 150 ml # Voids 2 Laboratory Tests 07/29/16 02:50: Urine Eosinophils None seen, Urine Random Creatinine [Pending], Urine Random Microalbumin [Pending], Urine Random Total Protein 40, Urine Random Sodium 55, Urine Creatinine 193.6, Urine Microalbumin/Creatinine Ratio [Pending] 07/29/16 05:30: White Blood Count 8.0, Red Blood Count 3.41L, Hemoglobin 11.5L, Hematocrit 35.6L , Mean Corpuscular Volume 104H, Mean Corpuscular Hemoglobin 33.6H, Mean Corpuscular Hemoglobin Concent 32.2, Red Cell Distribution Width 14.3, Platelet Count 199, Mean Platelet Volume 7.6, Neutrophils (%) (Auto) 62.3, Lymphocytes (% ) (Auto) 28.2, Monocytes (%) (Auto) 8.7, Eosinophils (%) (Auto) 0.4, Basophils ( %) (Auto) 0.4, Sodium Level 139, Potassium Level 3.9, Chloride Level 99, Carbon Dioxide Level 23, Anion Gap 17H, Blood Urea Nitrogen 16, Creatinine 1.6H, Estimat Glomerular Filtration Rate 53.9, Glucose Level 43L, Calcium Level 8.7 Height (Feet): 5 Height (Inches): 9.00 Weight (Pounds): 130 Objective HEAD AND NECK: Oral exam, no thrush. Eye exam, no icterus. Neck is supple. No JVD. No sinus tenderness. Normocephalic. No facial droop. No neck stiffness. LUNGS: Bilateral rhonchi and rales. HEART: Regular. No gallop or murmur. No friction rub. Tachycardic. ABDOMEN: Soft. Positive bowel sounds. SKIN: No rash or dermatitis. MUSCULOSKELETAL: No effusions or contractures. EXTREMITIES: Legs are without cellulitis. LUPE ROSS Jul 29, 2016 10:06
--- NOTE | 2016-07-29 10:49 | Cardiology Report ---
APPROVED REPORT EXAM: Two-dimensional and M-mode echocardiogram with Doppler and color Doppler. INDICATION Shortness of Breath M-Mode DIMENSIONS IVSd.9 (0.7-1.1cm)Left Atrium (MM)3.0 (1.6-4.0cm) LVDd4.4 (3.5-5.6cm)Aortic Root3.2 (2.0-3.7cm) PWd.8 (0.7-1.1cm)Aortic Cusp Exc.2.0 (1.5-2.0cm) LVDs3.0 (2.5-4.0cm) PWs1.5 cm Technically difficult study due to poor acoustic windows. Study quality precludes accurate assessment of regional wall motion. Normal left ventricular chamber size, systolic function and wall motion. Left ventricular ejection fraction estimated to be 55-60%. No evidence of ventricular hypertrophy. No evidence of pericardial fat or effusion. All other cardiac chamber sizes are within normal limits. Mild focal aortic valve sclerosis with adequate cusp excursion. Mildly thickened mitral valve leaflets with normal excursion. Mild mitral annulus and aortic root calcification. Pulmonic valve not well visualized. Normal tricuspid valve structure. IVC dilated at 1.9cm with physiologic collapse. A color flow and spectral Doppler study was performed and revealed: No aortic regurgitation. Trace mitral regurgitation. Mitral inflow indicate normal left ventricular diastolic function. Trace tricuspid regurgitation. Tricuspid systolic velocities suggests peak right ventricular systolic pressure of 14 mmHg.
--- NOTE | 2016-07-29 11:21 | Diagnostic Imaging Report ---
Indication: Cough Technique: One view of the chest Comparison: 07/22/16 Findings: Again demonstrated is thoracic scoliosis. The lungs and pleural spaces remain clear except for some atelectasis at the right lung base. The heart size is probably normal Impression: No acute process
[2016-07-29 12:00] VITALS: BP 125/81
--- NOTE | 2016-07-29 12:39 | Cardiology Report ---
APPROVED REPORT EKG Measurement Heart [id number] Sinus tachycardia Otherwise normal ECG
[2016-07-29 16:03] VITALS: BP 139/88
--- NOTE | 2016-07-29 19:23 | Infectious Diseases Prog Note ---
Assessment/Plan Assessment/Plan A) 1) fevers, sob, congestion - fevers improved, chest x-ray negative, clinically better 2) uri/bronchitis/copd 3) hiv, cd4 > 500 4) ? viral syndrome, influenza screen negative 5) zara, elevated cr, ? cri, htn, dm, neuropathy, copd, asthma, weakness, fatigue, ca - ? type 6) sh-past smoker, fh-nc, mar noted, notes and records reviewed 7) allergies - pcn, amoxicillin 8) d/w RN P) 1) azithromycin, zyvox, aztreonam for now 2) check sc final, labs and chest x-ray, check legionella, check mycoplasma 3) pulmonary treatment - breathing treatments 4) orders entered and noted 5) continue treatment per primary and consultants 6) d/w pt, answered questions Subjective Constitutional: Denies: fatigue, fever HEENT: Denies: congestion Respiratory: Denies: shortness of breath Cardiovascular: Denies: chest pain Gastrointestinal/Abdominal: Denies: diarrhea, nausea, vomiting Genitourinary: Reports: other Neurologic: Denies: headache Psychiatric: Denies: depression Skin: Denies: rash Hematologic: Denies: bleeding Musculoskeletal: Denies: pain Allergies: Coded Allergies: MUSHROOM (Verified Allergy, Severe, Hives, 07/27/16) AMOXICILLIN (Verified Allergy, Mild, 10/11/09) PENICILLINS (Verified Allergy, Mild, 10/11/09) Objective Vital Signs Last 24 Hour Vital Signs Date Time Temp Pulse Resp B/P Pulse Ox O2 Delivery O2 Flow Rate FiO2 07/29/16 17:55 98.0 95 07/29/16 16:47 98.0 07/29/16 16:18 100.0 07/29/16 16:03 100.0 120 19 139/88 95 Room Air 07/29/16 14:39 84 18 100 Room Air 07/29/16 14:35 94 18 96 Room Air 07/29/16 12:00 98.2 114 18 125/81 91 Room Air 07/29/16 10:41 109 18 100 Room Air 07/29/16 10:36 109 18 96 Room Air 07/29/16 08:04 126/86 07/29/16 08:00 98.3 73 18 127/76 91 Room Air 07/29/16 07:11 108 18 100 Room Air 07/29/16 07:06 120 18 96 Room Air 07/29/16 04:00 98.8 116 20 126/86 95 Room Air 07/29/16 03:33 99 18 98 Room Air 07/29/16 03:28 99 20 96 Room Air 07/29/16 00:00 100.2 121 22 133/81 94 Room Air 07/28/16 23:22 105 18 96 Room Air 07/28/16 23:12 104 20 95 Room Air 07/28/16 20:00 99.3 108 18 116/74 96 Room Air 07/28/16 19:45 102 16 98 Room Air 2.0 07/28/16 19:35 101 16 96 Room Air Height (Feet): 5 Height (Inches): 9.00 Weight (Pounds): 130 General Appearance: no acute distress HEENT: normocephalic, atraumatic, anicteric, mucous membranes moist, PERRL, EOMI, pharynx normal, supple, no JVD Respiratory/Chest: rhonchi - bilaterally - less rhonchi bilateral Cardiovascular: normal rate, regular rhythm, no gallop/murmur, no JVD Abdomen: normal bowel sounds, soft, non tender, no organomegaly, non distended Genitourinary: other - no [place] Extremities: no cyanosis Skin: no rash 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 Resulted 07/27/16 15:22 Nasal Nares Influenza Types A,B Antigen (ALON) - Final Complete Laboratory Tests Test 07/29/16 02:50 07/29/16 05:30 Urine Eosinophils None seen Urine Random Creatinine Pending Urine Random Microalbumin Pending Urine Random Total Protein 40 mg/dL Urine Random Sodium 55 mmol/L Urine Creatinine 193.6 mg/dL Urine Microalbumin/Creatinine Ratio Pending White Blood Count 8.0 K/UL (4.8-10.8) Red Blood Count 3.41 M/UL (4.70-6.10) L Hemoglobin 11.5 G/DL (14.2-18.0) L Hematocrit 35.6 % (42.0-52.0) L Mean Corpuscular Volume 104 FL (80-99) H Mean Corpuscular Hemoglobin 33.6 PG (27.0-31.0) H Mean Corpuscular Hemoglobin Concent 32.2 G/DL (32.0-36.0) Red Cell Distribution Width 14.3 % (11.6-14.8) Platelet Count 199 K/UL (150-450) Mean Platelet Volume 7.6 FL (6.5-10.1) Neutrophils (%) (Auto) 62.3 % (45.0-75.0) Lymphocytes (%) (Auto) 28.2 % (20.0-45.0) Monocytes (%) (Auto) 8.7 % (1.0-10.0) Eosinophils (%) (Auto) 0.4 % (0.0-3.0) Basophils (%) (Auto) 0.4 % (0.0-2.0) Sodium Level 139 mEQ/L (135-145) Potassium Level 3.9 mEQ/L (3.4-4.9) Chloride Level 99 mEQ/L (98-107) Carbon Dioxide Level 23 mEQ/L (20-30) Anion Gap 17 (5-15) H Blood Urea Nitrogen 16 mg/dL (7-23) Creatinine 1.6 mg/dL (0.7-1.2) H Estimat Glomerular Filtration Rate 53.9 mL/min (>60) Glucose Level 43 mg/dL (74-106) L Calcium Level 8.7 mg/dL (8.6-10.2) Current Medications Medications (Trade) Dose Ordered Sig/Jeremias Route PRN Reason Start Time Stop Time Status Last Admin Dose Admin Abacavir/ Lamivudine (Epzicom) 1 tab DAILY ORAL 07/28/16 13:00 08/27/16 12:59 07/29/16 08:04 Acetaminophen (Tylenol) 650 mg Q6H PRN ORAL Mild Pain/Temp > 100.5 07/27/16 19:45 08/26/16 19:44 07/29/16 15:48 Albuterol Sulfate (Proventil) 2.5 mg Q4HRT HHN 07/27/16 23:00 08/01/16 22:59 07/29/16 14:38 Ascorbic Acid (Vitamin C) 500 mg BID ORAL 07/28/16 09:00 08/27/16 08:59 07/29/16 18:03 Aspirin (Ecotrin) 81 mg DAILY ORAL 07/28/16 09:00 08/27/16 08:59 07/29/16 08:03 Azithromycin/ Dextrose (Zithromax/D5W) 110 ml @ 110 mls/hr Q24HRS IV 07/29/16 00:00 08/01/16 00:00 07/29/16 00:58 Aztreonam/Dextrose (Azactam/D5W) 55 ml @ 110 mls/hr Q8HR IVPB 07/27/16 22:00 08/03/16 21:59 07/29/16 13:51 Budesonide/ Formoterol Fumarate (Symbicort 160/ 4.5) 1 puff Q6H PRN INH WHEEZING 07/27/16 21:00 08/26/16 20:59 Dextrose (Dextrose 50%) STAT PRN IV Hypoglycemia 07/27/16 19:45 08/26/16 19:44 Efavirenz (Sustiva) 600 mg BEDTIME ORAL 07/27/16 21:00 08/26/16 20:59 07/28/16 20:49 Hydromorphone HCl (Dilaudid) 2 mg Q4H PRN IVP Severe Pain (Pain Scale 7-10) 07/27/16 19:45 08/03/16 19:44 07/29/16 15:48 Insulin Aspart (NovoLOG) BEFORE MEALS AND HS SUBQ 07/27/16 21:00 08/26/16 20:59 07/29/16 11:50 Insulin Detemir 24 units 24 units QHS SUBQ 07/27/16 21:00 08/26/16 20:59 07/28/16 21:02 Ipratropium [place] (Atrovent) 500 mcg Q4H PRN HHN Shortness of Breath 07/27/16 19:45 08/01/16 19:44 Linezolid 300 ml @ 300 mls/hr EVERY 12 HOURS IVPB 07/27/16 21:00 08/03/16 20:59 07/29/16 08:03 Lisinopril (Prinivil) 10 mg DAILY ORAL 07/28/16 09:00 08/27/16 08:59 07/29/16 08:04 Ondansetron HCl (Zofran) 4 mg Q4H PRN IVP Nausea & Vomiting 07/27/16 19:45 08/26/16 19:44 07/28/16 15:20 Oxandrolone (Oxandrin) 10 mg DAILY ORAL 07/28/16 09:00 08/27/16 08:59 07/29/16 08:03 Pregabalin (Lyrica) 50 mg DAILY ORAL 07/28/16 09:00 08/27/16 08:59 07/29/16 08:05 Promethazine HCl/ Codeine (Phenergan with Codeine) 5 ml Q4H PRN ORAL For Cough 07/27/16 19:45 08/26/16 19:44 07/28/16 15:45 Zolpidem Tartrate (Ambien) 5 mg HSPRN PRN ORAL Insomnia 07/27/16 19:45 08/26/16 19:44 ANDRZEJ SMITH Jul 29, 2016 19:23
[2016-07-29 20:00] VITALS: BP 121/78
[2016-07-29] MEDS: Efavirenz 200mg cap ORAL SCH (21:42)
[2016-07-29] MEDS: Doxycycline Hyclate 100 MG in D5W 110 ML IV SCH (21:42)
[2016-07-29] MEDS: Levemir Flexpen SUBQ SCH (21:50)
--- NOTE | 2016-07-29 22:14 | Cardiology Progress Note ---
Assessment/Plan Assessment/Plan 1. Sinus tachycardia, correct underlying etiology with IV ABx, hydration. 2. History of shortness of breath most likely due to pulmonary origin. We will continue oxygen and pulmonary toilet and intravenous antibiotic therapy. 3. History of hypertension. We will continue on lisinopril. 4. History of diabetes mellitus. The patient is on aspirin therapy. He would benefit from statins as well. 5. History of chronic obstructive pulmonary disease. 6. History of peripheral neuropathy. Subjective Subjective No cardiac events. Denies SOB, although complains about sharp chest wall pains. Objective Last 24 Hour Vital Signs Date Time Temp Pulse Resp B/P Pulse Ox O2 Delivery O2 Flow Rate FiO2 07/29/16 20:06 106 18 95 Room Air 07/29/16 20:05 110 18 95 Room Air 07/29/16 20:00 98.1 89 20 121/78 91 Room Air 07/29/16 17:55 98.0 95 07/29/16 16:47 98.0 07/29/16 16:18 100.0 07/29/16 16:03 100.0 120 19 139/88 95 Room Air 07/29/16 14:39 84 18 100 Room Air 07/29/16 14:35 94 18 96 Room Air 07/29/16 12:00 98.2 114 18 125/81 91 Room Air 07/29/16 10:41 109 18 100 Room Air 07/29/16 10:36 109 18 96 Room Air 07/29/16 08:04 126/86 07/29/16 08:00 98.3 73 18 127/76 91 Room Air 07/29/16 07:11 108 18 100 Room Air 07/29/16 07:06 120 18 96 Room Air 07/29/16 04:00 98.8 116 20 126/86 95 Room Air 07/29/16 03:33 99 18 98 Room Air 07/29/16 03:28 99 20 96 Room Air 07/29/16 00:00 100.2 121 22 133/81 94 Room Air 07/28/16 23:22 105 18 96 Room Air 07/28/16 23:12 104 20 95 Room Air Intake and Output 07/28/16 07/29/16 19:00 07:00 Intake Total 230 ml 590 ml Output Total 300 ml 150 ml Balance -70 ml 440 ml Intake Oral 120 ml 480 ml IV Total 110 ml 110 ml Output Urine Total 300 ml 150 ml # Voids 2 2D Echo: LVEF 55-60%, RVSP 14 mmHg Laboratory Tests Test 07/29/16 02:50 07/29/16 05:30 07/29/16 06:50 Urine Eosinophils None seen Urine Random Creatinine Pending Urine Random Microalbumin Pending Urine Random Total Protein 40 mg/dL Urine Random Sodium 55 mmol/L Urine Creatinine 193.6 mg/dL Urine Microalbumin/Creatinine Ratio Pending White Blood Count 8.0 K/UL (4.8-10.8) Red Blood Count 3.41 M/UL (4.70-6.10) L Hemoglobin 11.5 G/DL (14.2-18.0) L Hematocrit 35.6 % (42.0-52.0) L Mean Corpuscular Volume 104 FL (80-99) H Mean Corpuscular Hemoglobin 33.6 PG (27.0-31.0) H Mean Corpuscular Hemoglobin Concent 32.2 G/DL (32.0-36.0) Red Cell Distribution Width 14.3 % (11.6-14.8) Platelet Count 199 K/UL (150-450) Mean Platelet Volume 7.6 FL (6.5-10.1) Neutrophils (%) (Auto) 62.3 % (45.0-75.0) Lymphocytes (%) (Auto) 28.2 % (20.0-45.0) Monocytes (%) (Auto) 8.7 % (1.0-10.0) Eosinophils (%) (Auto) 0.4 % (0.0-3.0) Basophils (%) (Auto) 0.4 % (0.0-2.0) Sodium Level 139 mEQ/L (135-145) Potassium Level 3.9 mEQ/L (3.4-4.9) Chloride Level 99 mEQ/L (98-107) Carbon Dioxide Level 23 mEQ/L (20-30) Anion Gap 17 (5-15) H Blood Urea Nitrogen 16 mg/dL (7-23) Creatinine 1.6 mg/dL (0.7-1.2) H Estimat Glomerular Filtration Rate 53.9 mL/min (>60) Glucose Level 43 mg/dL (74-106) L Calcium Level 8.7 mg/dL (8.6-10.2) Cryptococcus Antigen Pending Microbiology Date/Time Source Procedure Growth Status 07/27/16 15:18 Blood Blood Culture - Preliminary NO GROWTH AFTER 24 HOURS Resulted 07/27/16 15:15 Blood Blood Culture - Preliminary NO GROWTH AFTER 24 HOURS Resulted 07/27/16 19:00 Sputum Gram Stain - Final Resulted 07/27/16 19:00 Sputum Sputum Culture - Preliminary NORMAL UPPER RESPIRATORY EDGAR AT 24 ... Resulted 07/27/16 15:22 Nasal Nares Influenza Types A,B Antigen (ALON) - Final Complete Objective GENERAL: The patient is a very ill-looking, 60-year-old gentleman, in no apparent respiratory distress. HEENT: Atraumatic and normocephalic. Anicteric. Pupils are equal, round, and reactive to light and accommodation. Extraocular muscles are intact. NECK: JVP is less than 5 cm. No carotid bruit. Carotid upstroke is 2+ bilaterally. CARDIOVASCULAR: Normal S1 and S2. Regular rate and rhythm. Tachycardic. A 2/6 mid systolic murmur at left sternal border. LUNGS: Clear to auscultation bilaterally. ABDOMEN: Soft, nontender, and nondistended. No hepatosplenomegaly. Positive bowel sounds. EXTREMITIES: No evidence of edema, clubbing, or cyanosis. WILVER JASSO Jul 29, 2016 22:14
[2016-07-30] VITALS: BP 123/82
[2016-07-30] MEDS: Albuterol ud Inhalation HHN SCH ×5 (03:00→20:34)
[2016-07-30 04:00] VITALS: BP 136/86
[2016-07-30] MEDS: NovoLOG Insulin Flexpen SUBQ SCH ×4 (06:30→21:42)
[2016-07-30 07:21] LABS: BASOPHILS % (AUTO) 0.7 % (0.0-2.0); EOSINOPHILS % (AUTO) 1.6 % (0.0-3.0); LYMPHOCYTES % (AUTO) 30.9 % (20.0-45.0); MEAN CORPUSCULAR HEMOGLOBIN 34.4 PG (27.0-31.0); MEAN CORPUSCULAR HGB CONC 33.5 G/DL (32.0-36.0); MEAN CORPUSCULAR VOLUME 103 FL (80-99); MEAN PLATELET VOLUME 8.2 FL (6.5-10.1); MONOCYTES % (AUTO) 10.9 % (1.0-10.0); PLATELET COUNT 195 K/UL (150-450); RED BLOOD COUNT 3.31 M/UL (4.70-6.10); RED CELL DISTRIBUTION WIDTH 14.6 % (11.6-14.8); WHITE BLOOD COUNT 4.5 K/UL (4.8-10.8)
[2016-07-30 07:26] LABS: ALANINE AMINOTRANSFERASE 20 U/L (3-41); ALBUMIN/GLOBULIN RATIO 0.8 (1.0-2.7); ANION GAP 10 (5-15); ASPARTATE AMINO TRANSFERASE 32 U/L (5-40); CALCIUM 9.1 mg/dL (8.6-10.2); CARBON DIOXIDE 27 mEQ/L (20-30); CHLORIDE 102 mEQ/L (98-107); CREATININE 1.4 mg/dL (0.7-1.2); GLOMERULAR FILTRATION RATE > 60 mL/min (>60); HEMOLYSIS 20; POTASSIUM 4.4 mEQ/L (3.4-4.9); SODIUM 139 mEQ/L (135-145); TOTAL PROTEIN 6.7 g/dL (6.6-8.7)
[2016-07-30 08:00] VITALS: BP 152/98
[2016-07-30] MEDS: Doxycycline Hyclate 100 MG in D5W 110 ML IV SCH ×2 (10:10→21:34)
[2016-07-30] MEDS: Aspirin EC 81mg tab ORAL SCH (10:11)
[2016-07-30] MEDS: Epzicom tab ORAL SCH (10:11)
[2016-07-30] MEDS: Lyrica 50mg cap ORAL SCH (10:11)
[2016-07-30] MEDS: Ascorbic Acid 500mg tab ORAL SCH ×2 (10:12→17:25)
[2016-07-30] MEDS: OXANDROLONE ORAL SCH (10:12)
[2016-07-30] MEDS: Lisinopril 20mg tab ORAL SCH (10:12)
--- NOTE | 2016-07-30 10:38 | Diagnostic Imaging Report ---
Indication: Acute renal failure, history of right nephrectomy Technique: Grayscale and duplex images of the kidneys, retroperitoneum, and bladder were obtained. Comparison:07/26/2011 Findings: Right kidney is surgically absent. No evidence of residual or recurrent tumor in the right renal fossa demonstrated. Left kidney measures 12.3 cm in length. Left kidney demonstrates equivocally slightly increased echogenicity. No hydronephrosis. Multiple small cysts are demonstrated. Non-shadowing hyperechoic focus within the right renal parenchyma may reflect a small calcification.. Normal inferior vena cava. Bladder is normal. Compared to the prior study, renal echogenicity appears equivocally increased Impression: Equivocal slightly increased right renal echogenicity, if real could indicate early medical renal disease Negative for hydronephrosis Incidental finding of possible punctate calcification within the left renal parenchyma, small left renal cyst Surgically absent right kidney.
[2016-07-30 12:00] VITALS: BP 154/96
--- NOTE | 2016-07-30 12:01 | Infectious Diseases Prog Note ---
Assessment/Plan Assessment/Plan A) 1) fevers, sob, congestion - fevers improved now, chest x-ray negative, elevated ldh, ? pcp, ? other, sc with yeast only which is likely colonizer 2) uri/bronchitis/copd 3) hiv, cd4 > 500 4) ? viral syndrome, influenza screen negative 5) zara, elevated cr, ? cri, htn, dm, neuropathy, copd, asthma, weakness, fatigue, ca - ? type 6) sh-past smoker, fh-nc, mar noted, notes and records reviewed 7) allergies - pcn, amoxicillin 8) d/w RN P) 1) doxycycline and bactrim 2) check gallium, ct chest without contrast, labs, serology 3) pulmonary treatment - breathing treatments 4) orders entered and noted 5) continue treatment per primary and consultants 6) d/w pt, answered questions 7) d/w HIV MD Dr. Jacobs about patients hiv status and said cd4 > 500 Subjective Constitutional: Denies: fever HEENT: Reports: congestion - less Respiratory: Reports: shortness of breath - less Cardiovascular: Denies: chest pain Gastrointestinal/Abdominal: Denies: diarrhea, nausea, vomiting Genitourinary: Denies: dysuria Neurologic: Denies: headache Psychiatric: Denies: depression Hematologic: Denies: bleeding Musculoskeletal: Denies: pain Allergies: Coded Allergies: MUSHROOM (Verified Allergy, Severe, Hives, 07/27/16) AMOXICILLIN (Verified Allergy, Mild, 10/11/09) PENICILLINS (Verified Allergy, Mild, 10/11/09) Objective Vital Signs Last 24 Hour Vital Signs Date Time Temp Pulse Resp B/P Pulse Ox O2 Delivery O2 Flow Rate FiO2 07/30/16 11:11 102 18 99 Room Air 07/30/16 11:06 105 18 98 Room Air 07/30/16 10:12 140/99 07/30/16 08:18 Room Air 07/30/16 08:17 Room Air 07/30/16 08:00 97.9 109 20 152/98 96 Room Air 07/30/16 04:00 98.1 109 20 136/86 Room Air 07/30/16 03:00 Room Air 07/30/16 03:00 Room Air 07/30/16 00:00 98.1 86 18 123/82 93 Room Air 07/29/16 23:51 107 18 99 Room Air 07/29/16 23:51 111 18 98 Room Air 07/29/16 21:00 92 Room Air 07/29/16 20:06 106 18 95 Room Air 07/29/16 20:05 110 18 95 Room Air 07/29/16 20:00 98.1 89 20 121/78 91 Room Air 07/29/16 17:55 98.0 95 07/29/16 16:47 98.0 07/29/16 16:18 100.0 07/29/16 16:03 100.0 120 19 139/88 95 Room Air 07/29/16 14:39 84 18 100 Room Air 07/29/16 14:35 94 18 96 Room Air 07/29/16 12:00 98.2 114 18 125/81 91 Room Air Height (Feet): 5 Height (Inches): 9.00 Weight (Pounds): 130 General Appearance: no acute distress HEENT: normocephalic, atraumatic, anicteric, mucous membranes moist, PERRL, EOMI, pharynx normal, supple, no JVD Respiratory/Chest: no respiratory distress, no accessory muscle use, crackles/ rales, rhonchi - bilaterally Cardiovascular: normal rate, regular rhythm, no gallop/murmur, no JVD Abdomen: normal bowel sounds, soft, non tender, no organomegaly, non distended Genitourinary: other - no [place] Extremities: no cyanosis Skin: no rash 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, 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 Lymphatic: no neck adenopathy Musculoskeletal: no effusion Objective chest x-ray - 07/27 - nad (reviewed) Microbiology Date/Time Source Procedure Growth Status 07/27/16 15:18 Blood Blood Culture - Preliminary NO GROWTH AFTER 48 HOURS Resulted 07/27/16 15:15 Blood Blood Culture - Preliminary NO GROWTH AFTER 48 HOURS Resulted 07/27/16 19:00 Sputum Gram Stain - Final Resulted 07/27/16 19:00 Sputum Culture - Preliminary YEAST Resulted 07/27/16 15:22 Nasal Nares Influenza Types A,B Antigen (ALON) - Final Complete Laboratory Tests Test 07/30/16 05:25 White Blood Count 4.5 K/UL (4.8-10.8) L Red Blood Count 3.31 M/UL (4.70-6.10) L Hemoglobin 11.4 G/DL (14.2-18.0) L Hematocrit 34.1 % (42.0-52.0) L Mean Corpuscular Volume 103 FL (80-99) H Mean Corpuscular Hemoglobin 34.4 PG (27.0-31.0) H Mean Corpuscular Hemoglobin Concent 33.5 G/DL (32.0-36.0) Red Cell Distribution Width 14.6 % (11.6-14.8) Platelet Count 195 K/UL (150-450) Mean Platelet Volume 8.2 FL (6.5-10.1) Neutrophils (%) (Auto) 56.0 % (45.0-75.0) Lymphocytes (%) (Auto) 30.9 % (20.0-45.0) Monocytes (%) (Auto) 10.9 % (1.0-10.0) H Eosinophils (%) (Auto) 1.6 % (0.0-3.0) Basophils (%) (Auto) 0.7 % (0.0-2.0) Sodium Level 139 mEQ/L (135-145) Potassium Level 4.4 mEQ/L (3.4-4.9) Chloride Level 102 mEQ/L (98-107) Carbon Dioxide Level 27 mEQ/L (20-30) Anion Gap 10 (5-15) Blood Urea Nitrogen 12 mg/dL (7-23) Creatinine 1.4 mg/dL (0.7-1.2) H Estimat Glomerular Filtration Rate > 60 mL/min (>60) Glucose Level 72 mg/dL (74-106) L Calcium Level 9.1 mg/dL (8.6-10.2) Total Bilirubin 0.6 mg/dL (0.0-1.2) Aspartate Amino Transf (AST/SGOT) 32 U/L (5-40) Alanine Aminotransferase (ALT/SGPT) 20 U/L (3-41) Alkaline Phosphatase 41 U/L (40-129) Lactate Dehydrogenase Pending Total Protein 6.7 g/dL (6.6-8.7) Albumin 3.1 g/dL (3.5-5.2) L Globulin 3.6 g/dL Albumin/Globulin Ratio 0.8 (1.0-2.7) L Current Medications Medications (Trade) Dose Ordered Sig/Jeremias Route PRN Reason Start Time Stop Time Status Last Admin Dose Admin Abacavir/ Lamivudine (Epzicom) 1 tab DAILY ORAL 07/28/16 13:00 08/27/16 12:59 07/30/16 10:11 Acetaminophen (Tylenol) 650 mg Q6H PRN ORAL Mild Pain/Temp > 100.5 07/27/16 19:45 08/26/16 19:44 07/29/16 15:48 Albuterol Sulfate (Proventil) 2.5 mg Q4HRT HHN 07/27/16 23:00 08/01/16 22:59 07/30/16 11:27 Ascorbic Acid (Vitamin C) 500 mg BID ORAL 07/28/16 09:00 08/27/16 08:59 07/30/16 10:12 Aspirin (Ecotrin) 81 mg DAILY ORAL 07/28/16 09:00 08/27/16 08:59 07/30/16 10:11 Budesonide/ Formoterol Fumarate (Symbicort 160/ 4.5) 1 puff Q6H PRN INH WHEEZING 07/27/16 21:00 08/26/16 20:59 Dextrose (Dextrose 50%) STAT PRN IV Hypoglycemia 07/27/16 19:45 08/26/16 19:44 Doxycycline Hyclate/Dextrose (Vibramycin/D5W) 110 ml @ 110 mls/hr Q12HR IV 07/29/16 21:00 08/05/16 20:59 07/30/16 10:10 Efavirenz (Sustiva) 600 mg BEDTIME ORAL 07/27/16 21:00 08/26/16 20:59 07/29/16 21:42 Hydromorphone HCl (Dilaudid) 2 mg Q4H PRN IVP Severe Pain (Pain Scale 7-10) 07/27/16 19:45 08/03/16 19:44 07/30/16 11:03 Insulin Aspart (NovoLOG) BEFORE MEALS AND HS SUBQ 07/27/16 21:00 08/26/16 20:59 07/29/16 11:50 Insulin Detemir (Levemir) 24 units QHS SUBQ 07/27/16 21:00 08/26/16 20:59 07/29/16 21:50 Ipratropium [place] (Atrovent) 500 mcg Q4H PRN HHN Shortness of Breath 07/27/16 19:45 08/01/16 19:44 Lisinopril (Prinivil) 10 mg DAILY ORAL 07/28/16 09:00 08/27/16 08:59 07/30/16 10:12 Ondansetron HCl (Zofran) 4 mg Q4H PRN IVP Nausea & Vomiting 07/27/16 19:45 08/26/16 19:44 07/28/16 15:20 Oxandrolone (Oxandrin) 10 mg DAILY ORAL 07/28/16 09:00 08/27/16 08:59 07/30/16 10:12 Pregabalin (Lyrica) 50 mg DAILY ORAL 07/28/16 09:00 08/27/16 08:59 07/30/16 10:11 Promethazine HCl/ Codeine (Phenergan with Codeine) 5 ml Q4H PRN ORAL For Cough 07/27/16 19:45 08/26/16 19:44 07/28/16 15:45 Trimethoprim/ Sulfamethoxazole 2 ea 2 ea TID ORAL 07/30/16 22:00 08/06/16 21:59 Zolpidem Tartrate (Ambien) 5 mg HSPRN PRN ORAL Insomnia 07/27/16 19:45 08/26/16 19:44 ANDRZEJ SMITH Jul 30, 2016 12:01
[2016-07-30 16:00] VITALS: BP 147/95
[2016-07-30 20:00] VITALS: BP 142/98
--- NOTE | 2016-07-30 21:01 | Cardiology Progress Note ---
Assessment/Plan Assessment/Plan 1. Sinus tachycardia, start metoprolol XL 25mg po qd, 12 lead ECG in am. 2. Dyspnea most likely due to pulmonary origin. We will continue oxygen and pulmonary toilet and intravenous antibiotic therapy. 3. History of hypertensio, continue on lisinopril. 4. History of diabetes mellitus, continue ASA, add statin. 5. History of chronic obstructive pulmonary disease. 6. History of peripheral neuropathy. Subjective Subjective No cardiac events. Feeling stronger. Objective Last 24 Hour Vital Signs Date Time Temp Pulse Resp B/P Pulse Ox O2 Delivery O2 Flow Rate FiO2 07/30/16 20:35 99 18 98 Room Air 07/30/16 20:35 100 18 98 Room Air 07/30/16 20:00 99.1 102 22 142/98 93 Room Air 07/30/16 16:00 98.4 120 22 147/95 96 Room Air 07/30/16 15:11 90 18 99 Room Air 07/30/16 15:06 85 18 98 Room Air 07/30/16 12:00 98.1 102 20 154/96 100 Room Air 07/30/16 11:11 102 18 99 Room Air 07/30/16 11:06 105 18 98 Room Air 07/30/16 10:12 140/99 07/30/16 08:18 Room Air 07/30/16 08:17 Room Air 07/30/16 08:00 97.9 109 20 152/98 96 Room Air 07/30/16 04:00 98.1 109 20 136/86 Room Air 07/30/16 03:00 Room Air 07/30/16 03:00 Room Air 07/30/16 00:00 98.1 86 18 123/82 93 Room Air 07/29/16 23:51 107 18 99 Room Air 07/29/16 23:51 111 18 98 Room Air 07/29/16 21:00 92 Room Air Intake and Output 07/29/16 07/30/16 19:00 07:00 Intake Total 540 ml 1260 ml Output Total 500 ml Balance 40 ml 1260 ml Intake Oral 240 ml 1150 ml IV Total 300 ml 110 ml Output Urine Total 500 ml # Voids 4 2D Echo: LVEF 55-60%, RVSP 14 mmHg, dilated IVC Laboratory Tests Test 07/30/16 05:25 White Blood Count 4.5 K/UL (4.8-10.8) L Red Blood Count 3.31 M/UL (4.70-6.10) L Hemoglobin 11.4 G/DL (14.2-18.0) L Hematocrit 34.1 % (42.0-52.0) L Mean Corpuscular Volume 103 FL (80-99) H Mean Corpuscular Hemoglobin 34.4 PG (27.0-31.0) H Mean Corpuscular Hemoglobin Concent 33.5 G/DL (32.0-36.0) Red Cell Distribution Width 14.6 % (11.6-14.8) Platelet Count 195 K/UL (150-450) Mean Platelet Volume 8.2 FL (6.5-10.1) Neutrophils (%) (Auto) 56.0 % (45.0-75.0) Lymphocytes (%) (Auto) 30.9 % (20.0-45.0) Monocytes (%) (Auto) 10.9 % (1.0-10.0) H Eosinophils (%) (Auto) 1.6 % (0.0-3.0) Basophils (%) (Auto) 0.7 % (0.0-2.0) Sodium Level 139 mEQ/L (135-145) Potassium Level 4.4 mEQ/L (3.4-4.9) Chloride Level 102 mEQ/L (98-107) Carbon Dioxide Level 27 mEQ/L (20-30) Anion Gap 10 (5-15) Blood Urea Nitrogen 12 mg/dL (7-23) Creatinine 1.4 mg/dL (0.7-1.2) H Estimat Glomerular Filtration Rate > 60 mL/min (>60) Glucose Level 72 mg/dL (74-106) L Calcium Level 9.1 mg/dL (8.6-10.2) Total Bilirubin 0.6 mg/dL (0.0-1.2) Aspartate Amino Transf (AST/SGOT) 32 U/L (5-40) Alanine Aminotransferase (ALT/SGPT) 20 U/L (3-41) Alkaline Phosphatase 41 U/L (40-129) Lactate Dehydrogenase Pending Total Protein 6.7 g/dL (6.6-8.7) Albumin 3.1 g/dL (3.5-5.2) L Globulin 3.6 g/dL Albumin/Globulin Ratio 0.8 (1.0-2.7) L Objective GENERAL: The patient is a very ill-looking, 60-year-old gentleman, in no apparent respiratory distress. HEENT: Atraumatic and normocephalic. Anicteric. Pupils are equal, round, and reactive to light and accommodation. Extraocular muscles are intact. NECK: JVP is less than 5 cm. No carotid bruit. Carotid upstroke is 2+ bilaterally. CARDIOVASCULAR: Normal S1 and S2. Regular rate and rhythm. Tachycardic. A 2/6 mid systolic murmur at left sternal border. LUNGS: Clear to auscultation bilaterally. ABDOMEN: Soft, nontender, and nondistended. No hepatosplenomegaly. Positive bowel sounds. EXTREMITIES: No evidence of edema, clubbing, or cyanosis. WILVER JASSO Jul 30, 2016 21:01
[2016-07-30] MEDS: Bactrim DS (160mg/800mg) tab ORAL SCH (21:35)
[2016-07-30] MEDS: Efavirenz 200mg cap ORAL SCH (21:36)
[2016-07-30] MEDS: Levemir Flexpen SUBQ SCH (21:41)
[2016-07-31] VITALS: BP 135/87
[2016-07-31] MEDS: Albuterol ud Inhalation HHN SCH ×7 (00:16→22:52)
[2016-07-31 04:00] VITALS: BP 134/79
[2016-07-31] MEDS: NovoLOG Insulin Flexpen SUBQ SCH ×4 (06:07→21:53)
[2016-07-31 08:00] VITALS: BP 120/79
--- NOTE | 2016-07-31 09:20 | Nephrology Progress Note ---
Assessment/Plan Problem List: (1) Acute kidney injury Assessment: due to unstable hemodynamic vs ckd due diabetic nephropathy vs HIVAN vs nephrosclerosis need to check us of kidney urine study us of kidney (2) COPD exacerbation Assessment: continue breathing treatment iv antibiotic (3) Diabetes mellitus complicating , childbirth, or the puerperium Assessment: well controlled (4) Febrile illness, acute Assessment: continue iv antibiotic fallow up with culture fallow up with ID rec (5) Tachycardia Assessment: echo is done cardiology evaluation Subjective Constitutional: Reports: weakness HEENT: Reports: no symptoms Genitourinary: Reports: no symptoms Neurologic/Psychiatric: Reports: no symptoms Subjective alert and awake still c/o cough and sputum no it getting better c/o nausea and vomiting Objective Objective Last 24 Hour Vital Signs Date Time Temp Pulse Resp B/P Pulse Ox O2 Delivery O2 Flow Rate FiO2 07/31/16 08:00 97.4 114 18 120/79 97 Room Air 07/31/16 07:51 110 21 100 Room Air 07/31/16 07:39 106 23 97 Room Air 07/31/16 06:48 97.9 07/31/16 04:00 97.9 108 20 134/79 91 Room Air 07/31/16 03:45 99 18 100 Room Air 07/31/16 03:44 93 18 98 Room Air 07/31/16 00:17 106 18 98 Room Air 07/31/16 00:17 105 18 99 Room Air 07/31/16 00:00 97.5 107 20 135/87 93 Room Air 07/30/16 20:35 99 18 98 Room Air 07/30/16 20:35 100 18 98 Room Air 07/30/16 20:00 99.1 102 22 142/98 93 Room Air 07/30/16 16:00 98.4 120 22 147/95 96 Room Air 07/30/16 15:11 90 18 99 Room Air 07/30/16 15:06 85 18 98 Room Air 07/30/16 12:00 98.1 102 20 154/96 100 Room Air 07/30/16 11:11 102 18 99 Room Air 07/30/16 11:06 105 18 98 Room Air 07/30/16 10:12 140/99 Intake and Output 07/30/16 07/31/16 19:00 07:00 Intake Total 480 ml 240 ml Output Total 440 ml 300 ml Balance 40 ml -60 ml Intake Oral 480 ml 240 ml Output Urine Total 440 ml 300 ml # Voids 6 Height (Feet): 5 Height (Inches): 9.00 Weight (Pounds): 130 Objective HEAD AND NECK: Oral exam, no thrush. Eye exam, no icterus. Neck is supple. No JVD. No sinus tenderness. Normocephalic. No facial droop. No neck stiffness. LUNGS: Bilateral rhonchi and rales. HEART: Regular. No gallop or murmur. No friction rub. Tachycardic. ABDOMEN: Soft. Positive bowel sounds. SKIN: No rash or dermatitis. MUSCULOSKELETAL: No effusions or contractures. EXTREMITIES: Legs are without cellulitis. LUPE ROSS Jul 31, 2016 09:20
[2016-07-31] MEDS: Epzicom tab ORAL SCH (09:26)
[2016-07-31] MEDS: Ascorbic Acid 500mg tab ORAL SCH ×2 (09:26→17:58)
[2016-07-31] MEDS: Bactrim DS (160mg/800mg) tab ORAL SCH ×3 (09:26→22:01)
[2016-07-31] MEDS: Lisinopril 10mg tab ORAL SCH (09:26)
--- NOTE | 2016-07-31 09:26 | Diagnostic Imaging Report ---
Clinical Indication: Cough, shortness of breath, fever, possible infection Technique: Spiral acquisitions obtained through the chest. No IV contrast utilized, per referring physician request. Multiplanar reconstructions generated. Total dose length product 570 mGycm. CTDIvol(s) 16 mGy Comparison: 07/07/2015 Findings:Linear and confluent at the right lung base likely reflect a combination of atelectasis and consolidation. These are new since the prior study. There are linear opacities at the left lung base which likely represent atelectasis, likewise new. Bilateral peripheral bullae are again demonstrated. The upper lobes are otherwise clear. There is atelectasis involving the posterior right middle lobe. No effusions. No definite nodules or masses. Absence of IV contrast anesthetic body habitus limits contrast resolution within the mediastinum. The heart size is normal. There is no evidence of pericardial effusion. No mediastinal or hilar mass or adenopathy. Unremarkable esophagus. There is pronounced thoracic scoliotic deformity. The included upper abdominal anatomy is unremarkable except for some surgical clips in the right upper retroperitoneum, which were previously described as being related to prior nephrectomy Impression: Bibasilar atelectasis and consolidation, nonspecific as regards etiology, new since 07/07/2015 Left basilar linear opacities, likewise new, may be on the basis of atelectasis COPD changes Scoliosis scoliosis Prior right nephrectomy, previously described The CT scanner at [facility] is accredited by the [employer] and the scans are performed using protocols designed to limit radiation exposure to as low as reasonably achievable to attain images of sufficient resolution adequate for diagnostic evaluation.
[2016-07-31] MEDS: OXANDROLONE ORAL SCH (09:27)
[2016-07-31] MEDS: Aspirin EC 81mg tab ORAL SCH (09:27)
[2016-07-31] MEDS: Doxycycline Hyclate 100 MG in D5W 110 ML IV SCH ×2 (09:27→22:01)
[2016-07-31] MEDS: Lyrica 50mg cap ORAL SCH (09:27)
[2016-07-31 12:00] VITALS: BP 138/83
[2016-07-31 16:15] VITALS: BP 136/87
[2016-07-31 20:00] VITALS: BP 132/93
--- NOTE | 2016-07-31 21:13 | Infectious Diseases Prog Note ---
Assessment/Plan Assessment/Plan A) 1) fevers, sob, congestion - fevers improved now, chest x-ray negative, elevated ldh, ? pcp, ? cap, CT scan chest with bibasilar consolidation, sc - yeast only 2) uri/bronchitis/copd 3) hiv, cd4 > 500 4) ? viral syndrome, influenza screen negative 5) zara, elevated cr, ? cri, htn, dm, neuropathy, copd, asthma, weakness, fatigue, ca - ? type 6) sh-past smoker, fh-nc, mar noted, notes and records reviewed 7) allergies - pcn, amoxicillin 8) d/w RN P) 1) doxycycline and bactrim 2) check gallium, check labs, check serology 3) pulmonary treatment - breathing treatments 4) orders entered and noted 5) continue treatment per primary and consultants 6) d/w pt, answered questions Subjective Constitutional: Denies: fever HEENT: Reports: congestion - less Respiratory: Reports: shortness of breath - less Cardiovascular: Denies: chest pain Gastrointestinal/Abdominal: Denies: nausea, vomiting Genitourinary: Denies: dysuria, frequency, hematuria Psychiatric: Denies: depression Skin: Denies: rash Hematologic: Denies: bleeding Musculoskeletal: Denies: pain Allergies: Coded Allergies: MUSHROOM (Verified Allergy, Severe, Hives, 07/27/16) AMOXICILLIN (Verified Allergy, Mild, 10/11/09) PENICILLINS (Verified Allergy, Mild, 10/11/09) Objective Vital Signs Last 24 Hour Vital Signs Date Time Temp Pulse Resp B/P Pulse Ox O2 Delivery O2 Flow Rate FiO2 07/31/16 19:35 84 18 100 Room Air 07/31/16 19:30 82 18 94 Room Air 07/31/16 16:15 96.4 91 18 136/87 98 Room Air 07/31/16 15:54 95 18 Room Air 07/31/16 15:45 89 18 Room Air 07/31/16 13:47 95.9 07/31/16 12:00 95.9 85 18 138/83 94 Room Air 07/31/16 11:30 104 20 Room Air 07/31/16 11:20 100 20 Room Air 07/31/16 09:26 120/79 07/31/16 08:00 97.4 114 18 120/79 97 Room Air 07/31/16 07:51 110 21 100 Room Air 07/31/16 07:39 106 23 97 Room Air 07/31/16 04:00 97.9 108 20 134/79 91 Room Air 07/31/16 03:45 99 18 100 Room Air 07/31/16 03:44 93 18 98 Room Air 07/31/16 00:17 106 18 98 Room Air 07/31/16 00:17 105 18 99 Room Air 07/31/16 00:00 97.5 107 20 135/87 93 Room Air Height (Feet): 5 Height (Inches): 9.00 Weight (Pounds): 130 General Appearance: no acute distress HEENT: normocephalic, atraumatic, anicteric, mucous membranes moist, PERRL, EOMI, pharynx normal, supple, no JVD Respiratory/Chest: crackles/rales, rhonchi - bilaterally - less Cardiovascular: normal rate, regular rhythm, no gallop/murmur, no JVD Abdomen: normal bowel sounds, soft, non tender, no organomegaly, non distended Genitourinary: other - no [place] Extremities: no cyanosis Skin: no rash 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, alert, oriented x 3, responsive Lymphatic: no neck adenopathy Musculoskeletal: no effusion Objective chest x-ray - 07/27 - nad (reviewed) CT scan - bibasilar consolidation and atx gallium pending Microbiology Date/Time Source Procedure Growth Status 07/27/16 15:18 Blood Blood Culture - Preliminary NO GROWTH AFTER 72 HOURS Resulted 07/27/16 19:00 Sputum Gram Stain - Final Resulted 07/27/16 19:00 Sputum Culture - Preliminary YEAST Usual Upper Respiratory Nelly Resulted Labs Test 07/29/16 02:50 07/29/16 05:30 07/29/16 06:50 07/30/16 05:25 Urine Eosinophils None seen Urine Random Total Protein 40 mg/dL Urine Random Sodium 55 mmol/L Urine Creatinine 193.6 mg/dL White Blood Count 8.0 K/UL (4.8-10.8) 4.5 K/UL (4.8-10.8) Red Blood Count 3.41 M/UL (4.70-6.10) 3.31 M/UL (4.70-6.10) Hemoglobin 11.5 G/DL (14.2-18.0) 11.4 G/DL (14.2-18.0) Hematocrit 35.6 % (42.0-52.0) 34.1 % (42.0-52.0) Mean Corpuscular Volume 104 FL (80-99) 103 FL (80-99) Mean Corpuscular Hemoglobin 33.6 PG (27.0-31.0) 34.4 PG (27.0-31.0) Mean Corpuscular Hemoglobin Concent 32.2 G/DL (32.0-36.0) 33.5 G/DL (32.0-36.0) Red Cell Distribution Width 14.3 % (11.6-14.8) 14.6 % (11.6-14.8) Platelet Count 199 K/UL (150-450) 195 K/UL (150-450) Mean Platelet Volume 7.6 FL (6.5-10.1) 8.2 FL (6.5-10.1) Neutrophils (%) (Auto) 62.3 % (45.0-75.0) 56.0 % (45.0-75.0) Lymphocytes (%) (Auto) 28.2 % (20.0-45.0) 30.9 % (20.0-45.0) Monocytes (%) (Auto) 8.7 % (1.0-10.0) 10.9 % (1.0-10.0) Eosinophils (%) (Auto) 0.4 % (0.0-3.0) 1.6 % (0.0-3.0) Basophils (%) (Auto) 0.4 % (0.0-2.0) 0.7 % (0.0-2.0) Sodium Level 139 mEQ/L (135-145) 139 mEQ/L (135-145) Potassium Level 3.9 mEQ/L (3.4-4.9) 4.4 mEQ/L (3.4-4.9) Chloride Level 99 mEQ/L (98-107) 102 mEQ/L (98-107) Carbon Dioxide Level 23 mEQ/L (20-30) 27 mEQ/L (20-30) Anion Gap 17 (5-15) 10 (5-15) Blood Urea Nitrogen 16 mg/dL (7-23) 12 mg/dL (7-23) Creatinine 1.6 mg/dL (0.7-1.2) 1.4 mg/dL (0.7-1.2) Estimat Glomerular Filtration Rate 53.9 mL/min (>60) > 60 mL/min (>60) Glucose Level 43 mg/dL (74-106) 72 mg/dL (74-106) Calcium Level 8.7 mg/dL (8.6-10.2) 9.1 mg/dL (8.6-10.2) Total Bilirubin 0.6 mg/dL (0.0-1.2) Aspartate Amino Transf (AST/SGOT) 32 U/L (5-40) Alanine Aminotransferase (ALT/SGPT) 20 U/L (3-41) Alkaline Phosphatase 41 U/L (40-129) Total Protein 6.7 g/dL (6.6-8.7) Albumin 3.1 g/dL (3.5-5.2) Globulin 3.6 g/dL Albumin/Globulin Ratio 0.8 (1.0-2.7) Current Medications Medications (Trade) Dose Ordered Sig/Jeremias Route PRN Reason Start Time Stop Time Status Last Admin Dose Admin Abacavir/ Lamivudine (Epzicom) 1 tab DAILY ORAL 07/28/16 13:00 08/27/16 12:59 07/31/16 09:26 Acetaminophen (Tylenol) 650 mg Q6H PRN ORAL Mild Pain/Temp > 100.5 07/27/16 19:45 08/26/16 19:44 07/29/16 15:48 Albuterol Sulfate (Proventil) 2.5 mg Q4HRT HHN 07/27/16 23:00 08/01/16 22:59 07/31/16 19:42 Ascorbic Acid (Vitamin C) 500 mg BID ORAL 07/28/16 09:00 08/27/16 08:59 07/31/16 17:58 Aspirin (Ecotrin) 81 mg DAILY ORAL 07/28/16 09:00 08/27/16 08:59 07/31/16 09:27 Budesonide/ Formoterol Fumarate (Symbicort 160/ 4.5) 1 puff Q6H PRN INH WHEEZING 07/27/16 21:00 08/26/16 20:59 Dextrose (Dextrose 50%) STAT PRN IV Hypoglycemia 07/27/16 19:45 08/26/16 19:44 Doxycycline Hyclate/Dextrose (Vibramycin/D5W) 110 ml @ 110 mls/hr Q12HR IV 07/29/16 21:00 08/05/16 20:59 07/31/16 09:27 Efavirenz (Sustiva) 600 mg BEDTIME ORAL 07/27/16 21:00 08/26/16 20:59 07/30/16 21:36 Hydromorphone HCl (Dilaudid) 2 mg Q4H PRN IVP Severe Pain (Pain Scale 7-10) 07/27/16 19:45 08/03/16 19:44 07/31/16 17:59 Insulin Aspart (NovoLOG) BEFORE MEALS AND HS SUBQ 07/27/16 21:00 08/26/16 20:59 07/30/16 21:42 Insulin Detemir 24 units 24 units QHS SUBQ 07/27/16 21:00 08/26/16 20:59 07/30/16 21:41 Ipratropium [place] (Atrovent) 500 mcg Q4H PRN HHN Shortness of Breath 07/27/16 19:45 08/01/16 19:44 Lisinopril (Zestril) 10 mg DAILY ORAL 07/31/16 09:00 08/30/16 08:59 07/31/16 09:26 Ondansetron HCl (Zofran) 4 mg Q4H PRN IVP Nausea & Vomiting 07/27/16 19:45 08/26/16 19:44 07/31/16 13:17 Oxandrolone (Oxandrin) 10 mg DAILY ORAL 07/28/16 09:00 08/27/16 08:59 07/31/16 09:27 Pravastatin Sodium (Pravachol) 20 mg BEDTIME ORAL 07/30/16 21:30 08/29/16 21:29 07/30/16 21:35 Pregabalin (Lyrica) 50 mg DAILY ORAL 07/28/16 09:00 08/27/16 08:59 07/31/16 09:27 Promethazine HCl/ Codeine (Phenergan with Codeine) 5 ml Q4H PRN ORAL For Cough 07/27/16 19:45 08/26/16 19:44 07/28/16 15:45 Trimethoprim/ Sulfamethoxazole (Bactrim-DS) 2 ea Q8HR ORAL 07/31/16 14:00 08/06/16 21:59 07/31/16 12:27 Zolpidem Tartrate (Ambien) 5 mg HSPRN PRN ORAL Insomnia 07/27/16 19:45 08/26/16 19:44 ANDRZEJ SMITH Jul 31, 2016 21:13
[2016-07-31] MEDS: Efavirenz 200mg cap ORAL SCH (22:02)
[2016-07-31] MEDS: Levemir Flexpen SUBQ SCH (22:20)
--- NOTE | 2016-07-31 22:44 | Cardiology Progress Note ---
Assessment/Plan Assessment/Plan 1. Sinus tachycardia, continue metoprolol 2. Dyspnea most likely due to pulmonary origin, continue oxygen and pulmonary toilet and intravenous antibiotic therapy. 3. History of hypertension, continue on lisinopril and metoprolol. 4. History of diabetes mellitus, continue ASA, add statin. 5. History of chronic obstructive pulmonary disease. 6. History of peripheral neuropathy. Subjective Subjective No cardiac events. Denies chest pain or SOB. Objective Last 24 Hour Vital Signs Date Time Temp Pulse Resp B/P Pulse Ox O2 Delivery O2 Flow Rate FiO2 07/31/16 20:00 98.1 103 18 132/93 93 Room Air 07/31/16 19:35 84 18 100 Room Air 07/31/16 19:30 82 18 94 Room Air 07/31/16 16:15 96.4 91 18 136/87 98 Room Air 07/31/16 15:54 95 18 Room Air 07/31/16 15:45 89 18 Room Air 07/31/16 13:47 95.9 07/31/16 12:00 95.9 85 18 138/83 94 Room Air 07/31/16 11:30 104 20 Room Air 07/31/16 11:20 100 20 Room Air 07/31/16 09:26 120/79 07/31/16 08:00 97.4 114 18 120/79 97 Room Air 07/31/16 07:51 110 21 100 Room Air 07/31/16 07:39 106 23 97 Room Air 07/31/16 04:00 97.9 108 20 134/79 91 Room Air 07/31/16 03:45 99 18 100 Room Air 07/31/16 03:44 93 18 98 Room Air 07/31/16 00:17 106 18 98 Room Air 07/31/16 00:17 105 18 99 Room Air 07/31/16 00:00 97.5 107 20 135/87 93 Room Air Intake and Output 07/30/16 07/31/16 19:00 07:00 Intake Total 480 ml 240 ml Output Total 440 ml 300 ml Balance 40 ml -60 ml Intake Oral 480 ml 240 ml Output Urine Total 440 ml 300 ml # Voids 6 2D Echo: LVEF 55-60%, RVSP 14 mmHg, dilated IVC Objective GENERAL: The patient is a very ill-looking, 60-year-old gentleman, in no apparent respiratory distress. HEENT: Atraumatic and normocephalic. Anicteric. Pupils are equal, round, and reactive to light and accommodation. Extraocular muscles are intact. NECK: JVP is less than 5 cm. No carotid bruit. Carotid upstroke is 2+ bilaterally. CARDIOVASCULAR: Normal S1 and S2. Regular rate and rhythm. Tachycardic. A 2/6 mid systolic murmur at left sternal border. LUNGS: Clear to auscultation bilaterally. ABDOMEN: Soft, nontender, and nondistended. No hepatosplenomegaly. Positive bowel sounds. EXTREMITIES: No evidence of edema, clubbing, or cyanosis. WILVER JASSO Jul 31, 2016 22:44
[2016-08-01] VITALS: BP 136/82
[2016-08-01] MEDS: Albuterol ud Inhalation HHN SCH ×4 (03:48→15:47)
[2016-08-01 04:00] VITALS: BP 131/80
[2016-08-01] MEDS: Bactrim DS (160mg/800mg) tab ORAL SCH ×2 (05:54→14:00)
[2016-08-01 06:27] LABS: EOSINOPHILS % (AUTO) 2.3 % (0.0-3.0); LYMPHOCYTES % (AUTO) 36.6 % (20.0-45.0); MEAN CORPUSCULAR HEMOGLOBIN 33.2 PG (27.0-31.0); MEAN CORPUSCULAR HGB CONC 32.4 G/DL (32.0-36.0); MEAN CORPUSCULAR VOLUME 103 FL (80-99); MEAN PLATELET VOLUME 7.3 FL (6.5-10.1); MONOCYTES % (AUTO) 13.3 % (1.0-10.0); NEUTROPHILS % (AUTO) 46.9 % (45.0-75.0); PLATELET COUNT 266 K/UL (150-450); RED BLOOD COUNT 3.71 M/UL (4.70-6.10); RED CELL DISTRIBUTION WIDTH 14.1 % (11.6-14.8); WHITE BLOOD COUNT 3.7 K/UL (4.8-10.8)
[2016-08-01] MEDS: NovoLOG Insulin Flexpen SUBQ SCH ×2 (06:30→11:30)
[2016-08-01 06:58] LABS: ANION GAP 10 (5-15); CALCIUM 9.8 mg/dL (8.6-10.2); CARBON DIOXIDE 31 mEQ/L (20-30); CHLORIDE 97 mEQ/L (98-107); CREATININE 1.4 mg/dL (0.7-1.2); GLOMERULAR FILTRATION RATE > 60 mL/min (>60); HEMOLYSIS 2; POTASSIUM 4.7 mEQ/L (3.4-4.9); SODIUM 138 mEQ/L (135-145)
[2016-08-01 08:00] VITALS: BP 135/86
[2016-08-01 08:56] LABS: MYCOPLASMA PNEUMONIAE AB IGG 285 U/mL (0-99); MYCOPLASMA PNEUMONIAE AB IGM <770 U/mL (0-769)
[2016-08-01 08:56] LABS: CREATININE RANDOM URINE 181.5 mg/dL (Not Estab.); MICROALBUMIN/CREATININE RATIO 10.6 mg/g creat (0.0-30.0)
[2016-08-01] MEDS: Doxycycline Hyclate 100 MG in D5W 110 ML IV SCH (09:00)
--- NOTE | 2016-08-01 10:17 | General Progress Note ---
Progress Note Progress Note [id number] full note dictated LUPE ROSS Aug 01, 2016 10:17
[2016-08-01] MEDS: Aspirin EC 81mg tab ORAL SCH (10:48)
[2016-08-01] MEDS: Epzicom tab ORAL SCH (10:48)
[2016-08-01] MEDS: OXANDROLONE ORAL SCH (10:49)
[2016-08-01] MEDS: Lyrica 50mg cap ORAL SCH (10:49)
[2016-08-01] MEDS: Ascorbic Acid 500mg tab ORAL SCH (10:49)
[2016-08-01] MEDS: Lisinopril 10mg tab ORAL SCH (10:50)
[2016-08-01 12:03] VITALS: BP 127/93
--- NOTE | 2016-08-01 12:40 | Diagnostic Imaging Report ---
Indications: Fever of unknown origin, HIV/AIDS Technique: 6.7 mCi 67-thallium citrate were administered intravenously. Multiplanar imaging of the entire body performed at 24 and 48 hours. Findings: Comparison: None Elongated focus of increased activity extends caudally into the right hemipelvis from the margin of the right hepatic lobe. No additional foci of abnormally increased activity demonstrated. IMPRESSION: Elongated focus of increased activity below right hepatic lobe. Whether this represents a normal variant Mansi's lobe of the liver or adjacent inflammatory versus neoplastic pathology cannot be differentiated. Contrast-enhanced CT scans of the abdomen and pelvis recommended for correlation.
[2016-08-01] MEDS ORDERED: NS 275ml ONE (17:25)
[2016-08-01] MEDS ORDERED: Tubing IV Secondary IV ONE (17:25)
--- NOTE | 2016-08-01 18:07 | Cardiology Progress Note ---
Assessment/Plan Assessment/Plan 1. Sinus tachycardia, continue metoprolol, OK to discharged today from the cardiac standpoint. 2. Dyspnea most likely due to pulmonary origin, continue oxygen and pulmonary toilet and intravenous antibiotic therapy. 3. History of hypertension, continue on lisinopril and metoprolol. 4. History of diabetes mellitus, continue ASA, add statin. 5. History of chronic obstructive pulmonary disease. 6. History of peripheral neuropathy. Subjective Subjective No cardiac events. Objective Last 24 Hour Vital Signs Date Time Temp Pulse Resp B/P Pulse Ox O2 Delivery O2 Flow Rate FiO2 08/01/16 15:49 Room Air 08/01/16 15:48 Room Air 08/01/16 15:48 Room Air 08/01/16 12:03 97.7 101 18 127/93 96 Room Air 08/01/16 11:30 Room Air 08/01/16 11:30 Room Air 08/01/16 10:50 127/93 08/01/16 08:00 97.9 104 20 135/86 95 Room Air 08/01/16 07:59 104 20 98 Room Air 08/01/16 07:49 99 18 93 Room Air 08/01/16 04:06 96.8 08/01/16 04:00 96.4 88 18 131/80 95 Room Air 08/01/16 03:50 111 18 92 Room Air 08/01/16 03:20 89 18 100 Room Air 08/01/16 00:00 96.8 93 18 136/82 96 Room Air 07/31/16 22:52 91 18 100 Room Air 07/31/16 22:45 95 18 94 Room Air 07/31/16 20:00 98.1 103 18 132/93 93 Room Air 07/31/16 19:35 84 18 100 Room Air 07/31/16 19:30 82 18 94 Room Air Intake and Output 07/31/16 08/01/16 19:00 07:00 Intake Total 470 ml 340 ml Output Total 600 ml 800 ml Balance -130 ml -460 ml Intake Oral 360 ml 340 ml IV Total 110 ml Output Urine Total 600 ml 800 ml # Voids 2 # Bowel Movements 1 2D Echo: LVEF 55-60%, RVSP 14 mmHg, dilated IVC Laboratory Tests Test 08/01/16 05:50 White Blood Count 3.7 K/UL (4.8-10.8) L Red Blood Count 3.71 M/UL (4.70-6.10) L Hemoglobin 12.3 G/DL (14.2-18.0) L Hematocrit 38.0 % (42.0-52.0) L Mean Corpuscular Volume 103 FL (80-99) H Mean Corpuscular Hemoglobin 33.2 PG (27.0-31.0) H Mean Corpuscular Hemoglobin Concent 32.4 G/DL (32.0-36.0) Red Cell Distribution Width 14.1 % (11.6-14.8) Platelet Count 266 K/UL (150-450) Mean Platelet Volume 7.3 FL (6.5-10.1) Neutrophils (%) (Auto) 46.9 % (45.0-75.0) Lymphocytes (%) (Auto) 36.6 % (20.0-45.0) Monocytes (%) (Auto) 13.3 % (1.0-10.0) H Eosinophils (%) (Auto) 2.3 % (0.0-3.0) Basophils (%) (Auto) 1.0 % (0.0-2.0) Sodium Level 138 mEQ/L (135-145) Potassium Level 4.7 mEQ/L (3.4-4.9) Chloride Level 97 mEQ/L (98-107) L Carbon Dioxide Level 31 mEQ/L (20-30) H Anion Gap 10 (5-15) Blood Urea Nitrogen 12 mg/dL (7-23) Creatinine 1.4 mg/dL (0.7-1.2) H Estimat Glomerular Filtration Rate > 60 mL/min (>60) Glucose Level 62 mg/dL (74-106) L Calcium Level 9.8 mg/dL (8.6-10.2) Lactate Dehydrogenase 159 U/L (135-230) Objective GENERAL: The patient is a very ill-looking, 60-year-old gentleman, in no apparent respiratory distress. HEENT: Atraumatic and normocephalic. Anicteric. Pupils are equal, round, and reactive to light and accommodation. Extraocular muscles are intact. NECK: JVP is less than 5 cm. No carotid bruit. Carotid upstroke is 2+ bilaterally. CARDIOVASCULAR: Normal S1 and S2. Regular rate and rhythm. Tachycardic. A 2/6 mid systolic murmur at left sternal border. LUNGS: Clear to auscultation bilaterally. ABDOMEN: Soft, nontender, and nondistended. No hepatosplenomegaly. Positive bowel sounds. EXTREMITIES: No evidence of edema, clubbing, or cyanosis. WILVER JASSO Aug 01, 2016 18:07
--- NOTE | 2016-08-02 00:08 | Discharge Summary ---
DATE OF ADMISSION: 07/27/2016 DATE OF DISCHARGE: 08/01/2016 PRIMARY DOCTOR: Rl Jacobs M.D. REASON FOR ADMISSION: Possible pneumonia. HISTORY OF PRESENT ILLNESS AND HOSPITAL COURSE: The patient is a pleasant 60-year-old male with past medical history significant for history of HIV; history of chronic kidney disease, baseline creatinine of 1.4 to 1.5; diabetes; COPD; hypertension; and dyslipidemia who was presented to his primary care doctor, Dr. Jacobs's office for evaluation of shortness of breath and productive cough. Apparently, it has been going on for the last two months and did not respond to outpatient oral antibiotics. So, consequently, the patient was sent to emergency room. In the ER, the patient got admitted and technical consultant, Dr. Atiya Lind, was called. The patient was started on antibiotics based on Infectious Disease recommendation. The patient also found to be tachycardic throughout the admission. For that, we ordered an echo, and Cardiology evaluation was done by Dr. Koffi Harper. The patient received an IV antibiotic. His tachycardia improved, but the patient continued to be having low appetite and had anorexia. Ensure was provided as a supplement. The patient's condition got better. I spoke to the Infectious Disease technical consultant, Dr. Atiya Lind, who felt that the patient is ready to be discharged. He recommended the patient to be on doxycycline for 1 week and Bactrim for 2 weeks. The patient will be discharged and will have a follow up with his primary physician, Dr. Rl Jacobs in about a week. Medication reconciliation was reviewed and basically, the patient continued with home medication with intravenous antibiotics as mentioned above. Lab results prior to discharge revealed WBC count of 3.7, hemoglobin was 12.3, hematocrit of 38, and platelet count was 266,000. Chemistry revealed sodium 138, potassium 4.7, 97 chloride, 31 bicarbonate, BUN of 12, and creatinine of 1.3. He had CT of his chest, which revealed basilar atelectasis and consolidation. Nonspecific as regard as etiology since 07/07/2015. Left basilar opacity, likewise atelectasis, COPD with changes was seen. Also, scoliosis and prior right nephrectomy was noted. The patient had a chest x-ray, which revealed no acute disease. PHYSICAL EXAMINATION: Upon discharge, the exam was okay. VITAL SIGNS: The patient was afebrile. The patient had temperature of 98, blood pressure 131/80, and pulse rate of 95. HEAD AND NECK: Bitemporal wasting. Extraocular movements are intact. Pupils are reactive to light and accommodation. LUNGS: Decreased breathing sounds on the both sides. CARDIAC: Regular rate and rhythm. S1 and S2. No murmur. No rub. ABDOMEN: Soft, nontender, and nondistended. EXTREMITIES: No edema. No clubbing. No cyanosis. The lab as mentioned above. DISCHARGE DIAGNOSES: 1. Pneumonia. 2. Malnutrition. 3. Human immunodeficiency virus. 4. Chronic obstructive pulmonary disease. 5. Hypertension. 6. Dyslipidemia. 7. History of right nephrectomy. DISPOSITION: The patient was discharged home. FOLLOWUP: He will have a followup with primary care doctor, Dr. Rl Jacobs, in about a week. Abbie Ramirez M.D. DR: ASA JOB#: [id number] CC:
== END 2016-08-01 15:30 | disposition home or self-care (01) | DRG 975 ==
LOC: EDBD 14:24 → EMR 14:55 → 4W 15:27 → EDBEDREQ 15:45
DX: J18.9 Pneumonia, unspecified organism (principal); B20 Human immunodeficiency virus [HIV] disease; J44.1 Chronic obstructive pulmonary disease with (acute) exacerbation; N17.9 Acute kidney failure, unspecified; E11.40 Type 2 diabetes mellitus with diabetic neuropathy, unspecified; E46 Unspecified protein-calorie malnutrition; G62.9 Polyneuropathy, unspecified; Z68.1 Body mass index [BMI] 19.9 or less, adult; I12.9 Hypertensive chronic kidney disease with stage 1 through stage 4 chronic kidney disease, or unspecified chronic kidney disease; N18.9 Chronic kidney disease, unspecified; E78.5 Hyperlipidemia, unspecified; Z79.4 Long term (current) use of insulin; R00.0 Tachycardia, unspecified
CPT/HCPCS: 36415; 71010; 71250; 76775; 78802; 80048; 80053; 80300; 81003; 82043; 82044; 82164; 82550; 82570; 82962; 83036; 83605; 83615; 83880; 84300; 84484; 85025; 86710; 86738; 87040; 87070; 87205; 87449; 89050; 93005; 93306; 94640; 94664; J1815; J2405; J3490; S5561